=== PATIENT | female | born 1935 | race Caucasian/White ===

== ENCOUNTER 2019-05-31 09:53 | Outpatient (CLI) | payer MEDICARE, SELFPAY ==
[2019-05-31 11:06] LABS: Alanine Aminotransferase 10 U/L (4-35); Albumin Level 4.2 g/dL (3.5-5.1); Alkaline Phosphatase 63 U/L (38-126); Aspartate Amino Transferase 38 U/L (14-36); Bilirubin,Total 0.6 mg/dL (0.2-1.3); Blood Urea Nitrogen 12 mg/dL (7-17); Calcium 9.6 mg/dL (8.4-10.2); Carbon Dioxide 29 mmol/L (22-30); Chloride 100 mmol/L (98-107); Estimated Glomerular Filt Rate > 60; Glucose 110 mg/dL (65-105); Potassium 4.3 mmol/L (3.4-5.0); Sodium 137 mmol/L (137-145)
[2019-05-31 11:07] LABS: Cholesterol 142 mg/dL (0-200); HDL Direct 54 mg/dL; Triglycerides 141 mg/dL (<150)
[2019-05-31 11:18] LABS: LDL Cholesterol Direct 79 mg/dL
[2019-05-31 11:33] LABS: Free T4 Free Thyroxine 1.21 ng/mL (0.78-2.19)
== END 2019-05-31 09:54 | disposition home or self-care (01) ==
PROVIDERS: PCP Nurse Practitioner Adult Health; Visit Provider Nurse Practitioner Adult Health
DX: E78.5 Hyperlipidemia, unspecified (principal); E03.9 Hypothyroidism, unspecified; N19 Unspecified kidney failure
CPT/HCPCS: 36415; 80048; 80061; 80076; 84439; 84443

== ENCOUNTER 2020-08-28 13:45 | Outpatient (CLI) | payer MEDICARE, SELFPAY ==
[2020-08-28 14:16] LABS: Basophils Percent Auto 0.4 % (0.2-1.2); Eosinophils Absolute Auto 0.1 K/mm3 (0-0.3); Hematocrit 37.5 % (37.0-47.0); Hemoglobin 12.8 g/dL (12.0-15.0); Immature Granulocyte Absolute 0.02 K/mm3 (0.00-0.031); Immature Granulocyte Percent A 0.4 % (0-0.5); Lymphocytes Absolute Auto 1.97 K/mm3 (0.9-3.2); Lymphocytes Percent Auto 38.6 % (18.3-44.2); Mean Corpuscular HGB Conc 34.1 g/dl (32-36); Mean Corpuscular Hemoglobin 35.2 pg (26-34); Mean Platelet Volume 10.7 fl (7.4-10.4); Monocytes Absolute Auto 0.4 K/mm3 (0.1-0.6); Monocytes Percent Auto 7.6 % (2.6-8.5); Neutrophils Absolute Auto 2.7 K/mm3 (1.3-6.7); Platelet Count Result 220 k/mm3 (150-375); Red Blood Count 3.64 M/mm3 (4.2-5.4); Red Cell Distribution Width 12.3 % (11.5-14.5); White Blood Count 5.1 K/mm3 (4.5-10.0)
[2020-08-28 16:48] LABS: Alanine Aminotransferase 17 U/L (4-35); Albumin Level 4.1 g/dL (3.5-5.1); Alkaline Phosphatase 51 U/L (38-126); Anion Gap 5 mmol/L (8-16); Aspartate Amino Transferase 22 U/L (14-36); Bilirubin,Total 0.4 mg/dL (0.2-1.3); Blood Urea Nitrogen 16 mg/dL (7-17); Carbon Dioxide 27 mmol/L (22-30); Chloride 101 mmol/L (98-107); Estimated Glomerular Filt Rate > 60; Glucose 119 mg/dL (65-105); Potassium 4.4 mmol/L (3.4-5.0); Sodium 133 mmol/L (137-145)
[2020-08-28 17:16] LABS: Carcinoembryonic Antigen 1.6 ng/mL (0.0-3.0)
== END 2020-08-28 13:46 | disposition home or self-care (01) ==
PROVIDERS: PCP Nurse Practitioner Adult Health; Visit Provider Internal Medicine Hematology & Oncology
DX: C20 Malignant neoplasm of rectum (principal)
CPT/HCPCS: 36415; 80053; 82378; 85025

== ENCOUNTER 2021-03-03 11:23 | Outpatient (RCR) | payer MEDICARE, SELFPAY | END 2021-04-30 12:10 | disposition home or self-care (01) | LOC: ANHWOC 11:23 | PROVIDERS: PCP Nurse Practitioner Adult Health; Visit Provider Surgery | DX: Z93.3 Colostomy status (principal) | CPT/HCPCS: 99213; G0463 ==

== ENCOUNTER 2021-05-31 11:52 | Inpatient (IN) | payer MEDICARE, SELFPAY ==
[2021-05-31] VITALS (7 sets, daily range): BP systolic 109–148; BP diastolic 42–60; PULSE 58–78; RESP 15–20; TEMP 36.3–36.9; O2SAT 96–99; BMI 26.6
--- NOTE | ~2021-05-31 | CT_ITS ---
EXAMINATION: CTA chest PE protocol EXAM DATE: 05/31/2021 14:12 INDICATION: Pulmonary embolism. TECHNIQUE: Spiral CTA of the chest (pulmonary arteries) was performed with 100 cc Omnipaque 350 intr avenous contrast injection. Images were acquired during the pulmonary arterial phase. Coronal maxi mum intensity projection 3D-reconstructions were created by the technologist on dedicated workstation . Axial, coronal and sagittal reformatted images were reviewed. The dose-length product (DLP) for t his examination was 407.93 mGy-cm. The exposure was tailored according to patient size (auto mA exp osure control), and iterative reconstruction (ASIR) was used as additional dose reduction technique. There is no prior study for comparison. FINDINGS: Pulmonary arteries are well opacified and without intraluminal filling defects. No thora cic aortic dissection. The lungs are clear. There is an aberrant right subclavian artery, a normal c ongenital variant. There are no pleural or pericardial effusions. Tracheobronchial tree is patent. There is no mediastinal, hilar or axillary lymphadenopathy. There is no pneumothorax. Heart nor mal in size. There is mild coronary arterial calcification, arterial sclerosis. There are cholecys tectomy clips. There is thoracic spondylosis without osteoblastic or osteolytic lesions identified. IMPRESSION: No pulmonary emboli or acute cardiopulmonary findings. Reviewed, dictated and finalized at location A. L INSPECTOR
--- NOTE | ~2021-05-31 | XR_ITS ---
EXAMINATION: XR chest 1V portable EXAM DATE: 05/31/2021 13:37 INDICATION: Mid chest States Been Going On Forever, Worse Today. TECHNIQUE: Portable AP frontal chest x-ray was obtained. Comparison is made to prior examination from 08/31/2017. FINDINGS: The lungs are clear. There are no pleural effusions. The cardiomediastinal silhouette is within normal limits. There is no pneumothorax suspected. There is aortic arteriosclerosis. There a re bony degenerative changes. There are cholecystectomy clips. IMPRESSION: No acute cardiopulmonary findings. Reviewed, dictated and finalized at location A. FILTER TANK TENDER HELPER
--- NOTE | 2021-05-31 12:22 | ECG_ITS ---
Measurements Intervals [place] Rate: 68 P: 15 NM: 185 QRS: 30 QRSD: 84 T: 52 QT: 402 QTc: 428 Interpretive Statements SINUS RHYTHM SUBTLE ST ELEVATION IN INFERIOR LEADS- CONSIDER ACUTE INFARCT BASELINE ARTIFACT- I, II, III, AVR, AVF, V1-V6 ABNORMAL ECG Electronically Signed On 05-31-2021 14:15:15 OUTSIDE BARREL LATHE OPERATOR by Fernando Phillips D.O.
--- NOTE | 2021-05-31 12:35 | ED.GENADULT ---
HPI - General Adult General Chief complaint: Chest Pain Stated complaint: chest pain Time Seen by Provider: 05/31/21 12:21 Source: RN notes reviewed History of Present Illness HPI narrative: Patient presents emergency department from home for chest pain. Patient has pain began proximally 10:00 this morning pain is located midsternal chest and goes into the right shoulder described as a pressure in nature patient states he does have a cardiac history with stents placed a long time ago but cannot give any further history she notes mild shortness of breath with the symptoms she states she did take a nitro at home with minimal relief this morning she denies any fevers or chills abdominal pain nausea vomiting or any other symptoms Related Data Home Medications Medication Instructions Recorded Confirmed carbidopa 25 mg-levodopa 100 mg 1 tablet PO TID 02/04/21 02/10/21 tablet citalopram 40 mg tablet 20 mg PO DAILY 02/04/21 02/10/21 levothyroxine 50 mcg tablet 50 mcg PO DAILY 02/04/21 02/10/21 pantoprazole 40 mg tablet,delayed 40 mg PO QAM 02/04/21 02/10/21 release simvastatin 10 mg tablet 10 mg PO DAILY 02/04/21 02/10/21 Allergies Allergy/AdvReac Type Severity Reaction Status Date / Time lanolin Allergy Severe ITCHING Verified 02/10/21 13:32 morphine Allergy Mild Itching Verified 02/10/21 13:32 meperidine Allergy Unknown unknown Verified 02/10/21 13:32 sulfur dioxide Allergy Unknown Unknown Verified 02/10/21 13:32 tramadol Allergy Unknown Unknown Verified 02/10/21 13:32 Sulfa (Sulfonamide AdvReac Mild Nausea and Verified 05/31/21 15:04 Antibiotics) Vomiting Review of Systems Review of Systems: Gen.: Denies fevers or chills ENT: Denies congestion Respiratory: Ports shortness of breath or chest CV: See HPI GI: Denies abdominal pain nausea, emesis or diarrhea Musculoskeletal: Denies back pain or muscle pain Neuro: Denies numbness, tingling, weakness or focal weakness Skin: Denies rash Except as documented, all other systems reviewed and negative PMFSH Past Medical History Medical History Colon cancer Colostomy in place HLD (hyperlipidemia) Hypothyroidism Parkinson disease Surgical History Surgical History (Updated 05/31/21 @ 16:13 by Prema Goldstein PA-C) History of creation of ostomy Hx of colectomy Family History Family History Other Cerebrovascular accident Diabetes mellitus Family history of allergic disorder Family history of kidney disease Family history of malignant neoplasm Hypertension Social History Social History Smoking status: Former smoker Alcohol intake: never Substance use: never Living arrangements: with friend(s) Occupation/Education: retired Exam Narrative: APPEARANCE: No acute distress, nontoxic, resting in bed EYES: EOMI HEENT: Normocephalic, atraumatic, OMM RESPIRATORY: No respiratory distress Clear to auscultation bilaterally with no rhonchi wheezing or rales. CARDIOVASCULAR: Regular rate and rhythm without murmurs rubs or gallops. ABDOMINAL: Soft, nontender, nondistended, no rebound or guarding MUSCULOSKELETAl: Moves all extremities. No clubbing, cyanosis or edema. NEURO: Awake and alert. Following commands, speech normal, no focal deficits SKIN:: Warm, dry. No rashes lesions or abrasions PSYCHIATRIC: Normal affect/mood, Course Course Emergency Course: Called and discussed with GREG Bess for Dr. Marlow presentation work-up agrees with consult this time agrees with plan for Lovenox and Nitropaste Discussed with MADELEINE Alejo presentation work-up agrees with admission Vital Signs Vital signs: Vital Signs Temperature 97.6 F 05/31/21 12:11 Pulse Rate 69 05/31/21 12:11 Respiratory Rate 16 05/31/21 12:11 Blood Pressure 111/42 L 05/31/21 12:11 Pulse Oximetry 99
[2021-05-31 13:11] LABS: Hematocrit 33.3 % (37.0-47.0); Hemoglobin 11.4 g/dL (12.0-15.0); Mean Corpuscular HGB Conc 34.2 g/dl (32-36); Mean Corpuscular Hemoglobin 38.6 pg (26-34); Mean Corpuscular Volume 112.9 fl (80-100); Mean Platelet Volume 11.1 fl (7.4-10.4); Platelet Count Result 212 k/mm3 (150-375); Red Blood Count 2.95 M/mm3 (4.2-5.4); Red Cell Distribution Width 13.2 % (11.5-14.5)
[2021-05-31 13:37] LABS: Alanine Aminotransferase 6 U/L (4-35); Alkaline Phosphatase 59 U/L (38-126); Anion Gap 4 mmol/L (8-16); Aspartate Amino Transferase 25 U/L (14-36); Bilirubin,Total 0.8 mg/dL (0.2-1.3); Blood Urea Nitrogen 11 mg/dL (7-17); Calcium 9.5 mg/dL (8.4-10.2); Carbon Dioxide 26 mmol/L (22-30); Chloride 101 mmol/L (98-107); Estimated CRCL calculation 49 ml/min; Estimated Glomerular Filt Rate > 60; Glucose 106 mg/dL (65-110); Lipase 85 U/L (23-300); Potassium 4.5 mmol/L (3.4-5.0); Sodium 131 mmol/L (137-145)
[2021-05-31 13:45] LABS: Troponin I 0.053 ng/mL (0.000-0.034)
--- NOTE | 2021-05-31 13:46 | ECG_ITS ---
Measurements Intervals [place] Rate: 62 P: 9 NH: 178 QRS: -1 QRSD: 85 T: 53 QT: 428 QTc: 435 Interpretive Statements SINUS RHYTHM MINIMAL Q WAVES- INFERIOR LEADS BASELINE ARTIFACT- I, II, III, AVR, AVL, AVF, V1, V3-V6 BORDERLINE ECG Electronically Signed On 05-31-2021 14:13:30 MOUNT LOADER by Fernando Phillips D.O.
--- NOTE | 2021-05-31 13:50 | ECG_ITS ---
Measurements Intervals [place] Rate: 66 P: 16 MN: 193 QRS: 36 QRSD: 88 T: 50 QT: 404 QTc: 426 Interpretive Statements SINUS RHYTHM SUBTLE ST ELEVATION IN INFERIOR LEADS- CONSIDER ACUTE INFARCT OR EARLY REPOLARIZATION ABNORMALITY ABNORMAL ECG Electronically Signed On 05-31-2021 17:13:19 FARM CONTRACTOR by Fernando Phillips D.O.
[2021-05-31 14:02] LABS: INR 1.1; Prothrombin Time 13.9 Seconds (11.1-14.7)
[2021-05-31 14:03] LABS: Partial Thromboplastin Time 29.7 SECONDS (22.3-36.8)
[2021-05-31 14:25] LABS: Band Neutrophils Percent 12 % (0-6); Lymphocytes Absolute Manual 0.28 K/mm3 (1.1-4.5); Metamyelocytes Percent 3 %; Monocytes Absolute Manual 0.04 K/mm3 (0.1-0.90); Monocytes Percent Manual 1 % (3-9); Neutrophils Absolute Manual 3.56 K/mm3 (1.7-7.2); Neutrophils Percent Manual 77 % (46-73); Platelet Estimate Adequate (Adequate); Total Cells Counted 100
[2021-05-31] MEDS: NITROGLYCERIN OINTMENT 1 INCH DOSE 0.5 INCH TRANSDERM (14:47)
[2021-05-31] MEDS: ASPIRIN 81 MG CHEWABLE TABLET 324 MG PO (15:03)
[2021-05-31] MEDS: ENOXAPARIN 80 MG/0.8 ML SYRINGE 72 MG SUB-Q (15:21)
--- NOTE | 2021-05-31 15:28 | PM.IMHP ---
H&P: HPI History of Present Illness Date/Time: 05/31/21 15:28 Chief Complaint: Chest pain Narrative: This is an 85 year old woman with history of hypothyroidism, HLD, Parkinson's Disease, Colon Cancer s/p colectomy with ostomy bag in place, status post chemo on radiation currently in remission, who presented to the ER with complaints of chest pain which began while she was walking into the bathroom to get ready this morning. The patient states she never even was able to brush her hair and get ready secondary to her pain. Patient tells me she is having mid substernal pressure chest pain with radiation to her left mid chest and to her left arm. She reports some associated symptoms of shortness of breath at times. She states it is currently a 7/10. She does have some increased pain with taking a deep breath. She did have some relief this morning when her friend gave her a nitro, but it did not completely resolve and soon the pain came back. The patient friend and POWolfgang Zacarias, lives with her and states she has had this pain off an on for years. The patient has never had it worked up before and usually it is not very severe and she will take a baby aspirin with improvement. Today she was concerned due to her increased pain and requesting at nitro pill. The patient decided to come into the emergency room for further evaluation workup because the pain was not resolving and was continuous. The patient's vitals on arrival to the emergency room showed a blood pressure 111/42, heart rate 69 beats per minute, afebrile, normal oxygenation on air. Initial labs showed slight leukopenia at 4000, elevated bands at 12%, elevated neutrophils at 77%. Macrocytic anemia with a hemoglobin of 11, hematocrit 33%, MCV of 112. Hyponatremia at 131, normal renal function, normal LFTs. Normal lipase. Elevated troponin at 0.053. Chest x-ray showed no acute cardiopulmonary findings. CTA chest showed no PE or acute cardiopulmonary findings. Patient was admitted to the hospital under observation status for further workup on her chest pain. Cardiology has been consulted. Code Status-DNR POA- Sheryl Drake Review of Systems Review of Systems: All systems reviewed & are unremarkable except as noted in HPI and below PMFSH Past Medical History Medical History (Updated 05/31/21 @ 16:24 by Prema Goldstein PA-C) Colon cancer Colostomy in place HLD (hyperlipidemia) Hypothyroidism Parkinson disease Surgical History Surgical History (Updated 05/31/21 @ 16:13 by Prema Goldstein PA-C) History of creation of ostomy Hx of colectomy Family History Family History Other Cerebrovascular accident Diabetes mellitus Family history of allergic disorder Family history of kidney disease Family history of malignant neoplasm Hypertension Social History Social History (Updated 05/31/21 @ 16:18 by Prema Goldstein PA-C) Smoking status: Former smoker Alcohol intake: never Substance use: never Living arrangements: with friend(s) Occupation/Education: retired Meds Home Medications and Allergies Home Medications Medication Instructions Recorded Confirmed Type carbidopa 25 mg-levodopa 100 mg 1 tablet PO TID 02/04/21 02/10/21 History tablet citalopram 40 mg tablet 20 mg PO DAILY 02/04/21 02/10/21 History levothyroxine 50 mcg tablet 50 mcg PO DAILY 02/04/21 02/10/21 History pantoprazole 40 mg tablet,delayed 40 mg PO QAM 02/04/21 02/10/21 History release simvastatin 10 mg tablet 10 mg PO DAILY 02/04/21 02/10/21 History Allergies Allergy/AdvReac Type Severity Reaction Status Date / Time lanolin Allergy Severe ITCHING Verified 02/10/21 13:32 morphine Allergy Mild Itching Verified 02/10/21 13:32 meperidine Allergy Unknown unknown Verified 02/10/21 13:32 sulfur dioxide Allergy Unknown Unknown Verified 02/10/21 13:32 tramadol Allergy Unknown Unknown Verified
[2021-05-31] MEDS: PANTOPRAZOLE SODIUM IV 40 MG VIAL IV PUSH ×2 (16:34→22:32)
--- NOTE | 2021-05-31 17:13 | ADMGEN ---
This patient, Bonnie Beltran, was admitted to IMU Room 232-01. Patient/family oriented to hospital policies and general routines including ID bracelet, bed and alarms, visiting hours, pain management, procedures, bathroom and other care routines, personal items, smoking policy, room service/diet, and visiting hours. Information on how to activate the Rapid Response Team has been discussed. Patient/Family are encouraged to report perceived risks to care and to ask questions if they do not understand what they are told or what they should do.
--- NOTE | 2021-05-31 18:09 | PM.CNCAR ---
Assessment and Plan Additional Plan This is an 85-year-old woman who apparently has a history of coronary disease with the angioplasty of the right coronary artery back in the . She also has an episode of atrial fibrillation occurred about 5 years ago when she was having colectomy performed. According to the notes she does not tolerate either anti coagulation or aspirin without bleeding. In any event she has a long history of several years of intermittent chest pain that on the surface sounds atypical of and not suggestive of myocardial ischemia. This appears to be 1 of those episodes. Her ECG does look benign. Her troponin level is slightly out normal range. We will trend the troponins and follow-up again on her tomorrow. Given her advanced age and especially given her DNR wishes I do not anticipate launching an ischemia workup while she is in the hospital. Chad Marlow MD LOCATED [facility]IN [facility] History of Present Illness History of Present Illness Consult date/time: 05/31/21 18:09 Consult reason: chest pain Reason For Visit: NSTEMI Narrative: This is a 85-year-old woman who I have not seen previously I am coming in from the emergency room today because of chest pain that was she was experiencing at home and created concern regarding her cardiac status. The patient currently is not experiencing any chest pain she has a history of chest pain intermittently in unpredictable fashion for about 2 or 3 years according to the patient and her caregiver/friend was with her in the hospital. The patient has episodes of relatively sharp central chest pain the seem to occur spot sporadically. She very a elderly lady that does not perform any physical exercise but with normal daily activity she does not find that activity triggers this. It is not associated with a sense of shortness of breath nausea vomiting or diaphoresis. The pain does not radiate to any other location. When I asked the patient if she has a history of cardiac problems prior to this she indicated that she does not. On further conversation however she indicates that she follows with my partner, Dr. Noel. Probing this more apparently she has a history of coronary artery disease with a PCI done a long time ago. The office chart which then item looked at indicates she has a history of angioplasty of the right coronary artery back in 1996. Presumably the vessel was not stented. She has a history of an episode of atrial fibrillation which occurred following colectomy for here at [place] for treating a rectal carcinoma in 2017. According to the office notes she does not tolerate either aspirin or anticoagulation without rectal bleeding. 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 Patient ECGs in the emergency room look benign. First troponin level that was done in the emergency room is fairly out of normal range at 0.05. Review of Systems Constitutional: Constitutional: Reports no additional constitutional complaints Eyes: Eyes: Reports no additional eye complaints ENT: Reports system reviewed and no additional complaints, except as documented Cardiovascular: Cardiovascular: Reports as per HPI Respiratory: Respiratory: Reports no additional respiratory complaints Gastrointestinal: Gastrointestinal: Reports diarrhea Musculoskeletal: Musculoskeletal: Reports myalgias Integumentary/Breasts: Skin/Breast: Reports system reviewed and no additional complaints, except as docu Neurologic: Reports system reviewed and no additional complaints, except as documented Endocrine: Endocrine: Reports no additional endocrine complaints Hematologic/Lymphatic: Hematologic/Lymphatic: Reports no additional hematologic/lymphatic complaints Allergic/Immunologic: Allergic/Immunologic: Reports no additional allergic/immunologic complaints PMFSH Past Medical History Medical History Colon cancer Colostomy in place HLD (hyperlip
[2021-05-31 18:19] LABS: Lactic Acid Reflex 1.8 mmol/L (0.7-2.1)
[2021-05-31 18:22] LABS: CRP < 0.5 mg/dL (<1.0); Lactate Dehydrogenase 387 U/L (313-618)
[2021-05-31 18:23] LABS: Transferrin 249 mg/dL (206-381)
[2021-05-31 18:46] LABS: Troponin I 0.377 ng/mL (0.000-0.034)
[2021-05-31 19:01] LABS: Iron 123 ug/dL (37-170)
[2021-05-31 19:11] LABS: Percent Iron Saturation 42 % (20-50)
[2021-05-31 19:23] LABS: Folic Acid 17.4 ng/mL (2.76->20)
[2021-05-31] MEDS: SIMVASTATIN 10 MG TABLET PO (21:10)
[2021-05-31 21:30] LABS: Troponin I 0.352 ng/mL (0.000-0.034)
[2021-05-31] MEDS: CARBIDOPA/LEVODOPA 25/100 MG TABLET 1 TABLET PO (22:32)
[2021-05-31] MEDS: NITROGLYCERIN OINTMENT 1 INCH DOSE TRANSDERM (22:32)
[2021-06-01] VITALS (15 sets, daily range): BP systolic 109–145; BP diastolic 37–73; PULSE 53–71; RESP 16–20; TEMP 35.8–36.8; O2SAT 94–100
--- NOTE | 2021-06-01 | ECHO_ITS ---
Patient Info Name: Bonnie Beltran Age: 86 years : 1935 Gender: Female Ht: 63 in Wt: 151 lbs BSA: 1.76 m2 HR: 63 bpm BP: 129 / 37 mmHg Heart Rhythm: Sinus Rhythm Technical Quality: Fair Exam Date: 06/01/2021 9:48 AM Exam Location: [facility] Card Pulmonary Patient Status: Inpatient Admit Date: 05/31/2021 Staff Ordering Physician: Prema Goldstein PA-C Survey Rodman: Anne López RDCS Attending Provider: Prema Goldstein PA-C Referring Physician: Triston WORLEY; Exam Type: CA echo dop color flow w con Study Info Indications - chest pain Complete two-dimensional, color flow and Doppler transthoracic echocardiogram is performed with contrast to opacify the left ventricle and to improve the deliniation of the left ventricle endocardial borders. Contrast/Agitated Saline Contrast/Ag. Saline: Definity Amount: 2.00 ml Administered By: Anne López RDCS Summary 1. Technically difficult study, echo contrast was used. Normal LV size and wall thickness; hyperdynamic LV systolic function, ejection fraction more than 70%. Diastolic dysfunction present with elevated left atrial pressures. Mildly thickened mitral valve leaflets, no significant MR. Mild aortic valve sclerosis without stenosis. Unable to assess RVSP due to inadequate TR jet. Small pericardial effusion with echogenic material, predominantly along RV wall. No echo evidence of tamponade. Left Ventricle Left ventricular chamber dimension is normal. Left ventricular systolic function is hyperdynamic, estimated at >70%. The left ventricular diastolic function is normal. Right Ventricle Right ventricular chamber dimension is normal. Right ventricular systolic function is normal. Left Atria Left atrial chamber dimension is normal. Right Atria Right atrial chamber dimension is normal. Aortic Valve There is mild aortic valve sclerosis. There is no aortic valve stenosis. Mitral Valve The mitral valve has thickened leaflets. Tricuspid Valve The tricuspid valve leaflets are not well visualized. Pericardium/Pleural The pericardium appears epicardial fat pad. There is small pericardial effusion. Aorta The aortic root size at the sinus of Valsalva is normal. Left Ventricular Outflow Tract Name Value Normal LVOT 2D LVOT Diameter 1.93 cm LVOT Doppler LVOT Peak Gradient 5 mmHg LVOT Mean Gradient 3 mmHg LVOT VTI 24.47 cm LVOT VTI/AV VTI Ratio 1.00 LVOT Stroke Volume 71.23 ml LVOT CO 4.06 l/min LVOT CI 2.30 L/min/m2 Pulmonic Valve Name Value Normal RVOT Doppler RVOT Peak Gradient 2 mmHg PV Doppler ----
[2021-06-01 06:02] LABS: Basophils Percent Auto 0.7 % (0.2-1.2); Eosinophils Absolute Auto 0.1 K/mm3 (0-0.3); Eosinophils Percent Auto 2.1 % (0-4.4); Hematocrit 29.9 % (37.0-47.0); Hemoglobin 10.3 g/dL (12.0-15.0); Lymphocytes Absolute Auto 1.25 K/mm3 (0.9-3.2); Lymphocytes Percent Auto 44.3 % (18.3-44.2); Mean Corpuscular HGB Conc 34.4 g/dl (32-36); Mean Corpuscular Hemoglobin 38.1 pg (26-34); Mean Corpuscular Volume 110.7 fl (80-100); Mean Platelet Volume 11.1 fl (7.4-10.4); Monocytes Absolute Auto 0.3 K/mm3 (0.1-0.6); Monocytes Percent Auto 9.9 % (2.6-8.5); Neutrophils Absolute Auto 1.2 K/mm3 (1.3-6.7); Platelet Count Result 180 k/mm3 (150-375); White Blood Count 2.8 K/mm3 (4.5-10.0)
[2021-06-01 06:13] LABS: Anion Gap 4 mmol/L (8-16); Blood Urea Nitrogen 14 mg/dL (7-17); Calcium 9.2 mg/dL (8.4-10.2); Carbon Dioxide 27 mmol/L (22-30); Chloride 100 mmol/L (98-107); Estimated CRCL calculation 42 ml/min; Estimated Glomerular Filt Rate > 60; Glucose 89 mg/dL (65-110); Potassium 3.6 mmol/L (3.4-5.0); Sodium 131 mmol/L (137-145)
[2021-06-01] MEDS: NITROGLYCERIN OINTMENT 1 INCH DOSE TRANSDERM ×3 (06:22→17:49)
[2021-06-01] MEDS: LEVOTHYROXINE SODIUM 50 MCG TABLET PO (06:23)
[2021-06-01] MEDS: CARBIDOPA/LEVODOPA 25/100 MG TABLET 1 TABLET PO ×3 (06:23→20:07)
--- NOTE | 2021-06-01 10:01 | ECG_ITS ---
Measurements Intervals [place] Rate: 59 P: 13 VT: 170 QRS: 45 QRSD: 81 T: 45 QT: 445 QTc: 441 Interpretive Statements SINUS BRADYCARDIA SUBTLE ST ELEVATION IN INFERIOR LEADS- CONSIDER ACUTE INFARCT OR EARLY REPOLARIZATIOIN ABNORMALITY MINIMAL Q WAVES- INFERIOR LEADS BASELINE ARTIFACT- I, II, III, AVR, AVL, AVF ABNORMAL ECG Electronically Signed On 06-01-2021 11:01:33 TRACTOR TRAILER TECHNICIAN by Fernando Phillips D.O.
--- NOTE | 2021-06-01 10:30 | PM.PNCARD ---
Progress Note: A&P Assessment and Plan (1) Acute coronary syndrome: Code(s): I24.9 - Acute ischemic heart disease, unspecified Status: Acute Assessment and Plan: 86-year-old female with history of CAD with remote history of RCA angioplasty in 1996-intervention report not available; PAF not on anticoagulation due to history of recurrent rectal bleeding based on outpatient notes; Parkinson's disease. Patient admitted to the hospital with chest pain with mixed features. CT chest negative for PE. Personally reviewed serial EKGs which showed sinus rhythm with subtle ST segment abnormality in the inferior leads and subtle ST depression in the leads 1 and aVL. Repeat EKG this morning shows sinus bradycardia with subtle ST segment abnormality in the inferior leads. Peak troponin 0.37 which is trending downwards. Bedside echocardiogram on preliminary assessment shows preserved LV systolic function. I spoke with the patient and her family member who was patient's bedside in detail. I reviewed outpatient note from Dr Noel. She was evaluated yesterday by Dr. Marlow, and given the fact that patient is DNR and has had history of intolerance to antiplatelets and anticoagulation in the form of bleeding, she was anticipated to be managed medically. This morning, however, patient states that she does not want to be in chest pain. She is hemodynamically stable at present and repeat EKG this morning does not show any worsening compared to the previous EKGs. Bedside echo on preliminary assessment shows preserved ejection fraction. After discussion with the patient, patient is okay to be managed medically for now but would like to proceed with invasive ischemic workup if her chest pain persists or gets worse in next 24 hours. Continue aspirin, beta-laura, statin. Continue to monitor if patient is able to tolerate aspirin. Continue to monitor on telemetry. Keep NPO from midnight in case patient goes for invasive workup tomorrow. Patient understands that her code status will need to be changed to full code during cardiac catheterization if she opts invasive workup. She verbalized understanding. Subjective Date/time seen: 06/01/21 10:30 Date of Service 06/01/2021: Patient reports substernal and left-sided chest discomfort, no relieving or aggravating factors at present. She denies any shortness of breath at rest. At the time of evaluation, bedside echocardiogram was being performed which on preliminary assessment showed preserved LV systolic function. On telemetry, patient has been in sinus rhythm. Personally reviewed previous EKG which showed sinus rhythm with subtle ST segment abnormality in the inferior leads and subtle ST depression in the leads 1 and aVL. Repeat EKG this morning shows sinus bradycardia with subtle ST segment abnormality in the inferior leads. Exam Narrative: PHYSICAL EXAMINATION: GENERAL: Alert, oriented MENTAL STATUS: Anxious EYES: Extraocular movements intact, no pallor EARS: External ears appear normal, hearing grossly normal NOSE: Normal and patent, no discharge MOUTH: Mucous membranes moist, tongue normal NECK: Supple, no JVD CHEST: Decreased effort, decreased breath sounds HEART: Normal rate, regular rhythm, normal S1 and S2 ABDOMEN: Soft, nontender; colostomy bag NEUROLOGICAL: Alert, normal speech MUSCULOSKELETAL: No major deformity, no amputation EXTREMITIES: No pedal edema, no clubbing, no cyanosis SKIN: no rash on the exposed area, no cyanosis PSYCHIATRIC: Anxious Objective Data Vital Signs Vital Signs: Vital Signs - 24 hr 05/31/21 12:11 05/31/21 12:30 05/31/21 16:47 Temperature 36.4 C 36.9 C Pulse Rate 69 67 62 Respiratory Rate 16 15 15 Blood Pressure 111/42 L 109/49 L 114/60 Pulse Oximetry 99 97 96 05/31/21 17:10 05/31/21 20:00 05/31/21 22:00 Temperature 36.4 C 36.3 C L Pulse Rate 58 L 62 64 Respiratory Rate 16 20 Blood Pressure 110/52 L 138/58 L Pulse Ox
--- NOTE | 2021-06-01 10:41 | PCPTNOTE ---
Attempted PT eval, but patient having a procedure done and MD in room. Will continue to follow as patient available.
[2021-06-01] MEDS: PERFLUTREN LIPID MICROSPHERES 1.5 ML VIAL DILUTED TO 10 ML TOTAL VOLUME IV PUSH (10:46)
--- NOTE | 2021-06-01 10:46 | IVDEFINITY ---
Prior to administration of IV Definity the patient was educated on the risks and benefits of the imaging enhancing agent including potential adverse side effects. The patient verbalized understanding. Allergies were verified. No exclusion criteria were identified and at least one of the following inclusion criteria were met: 1) physician request, 2) patient technically difficult to image (per the [place] [employer] guidelines of two or more segments not discernable within the apical view), or 3) questionable left ventricular function. ?
[2021-06-01] MEDS: ASPIRIN 325 MG TABLET PO (10:56)
[2021-06-01] MEDS: atenoloL 25 MG TABLET PO (10:57)
[2021-06-01] MEDS: CITALOPRAM HYDROBROMIDE 20 MG TABLET PO (10:57)
[2021-06-01] MEDS: PANTOPRAZOLE SODIUM IV 40 MG VIAL IV PUSH (10:58)
--- NOTE | 2021-06-01 11:39 | PM.IMPN ---
Progress Note: A&P Assessment and Plan (1) Chest pain: Code(s): R07.9 - Chest pain, unspecified Status: Acute Assessment and Plan: Patient has had intermittent chest pain for years and now it is constant even after nitro and full-dose aspirin. Patient cannot be on 81 mg aspirin daily because there is area of her ostomy that bleeds and she only takes 81 mg aspirin as needed for chest discomfort. Chest pain is 2/10 at this time. The nurse called me shortly after me seeing her stain that her pain increased to a 9/10 and an EKG was completed at that time. EKG shows sinus bradycardia, with subtle ST T-wave changes to the inferior leads. Pending echocardiogram results Cardiology evaluated the patient today after her increased chest pain. The director social service briefly reviewed the echo that was being completed at bedside with the patient and showed she had a normal EF, reviewed the EKG from admission to when her pain increased. He discussed with the patient and family about further ischemic workup. The patient states this chest pain is very uncomfortable and they would like to perform further cardiac workup if her pain does not resolve. Plan is to keep the patient overnight, NPO after midnight it depends on how he is feeling tomorrow if she will be placed on the list to have a cath Monitor telemetry Continue monitoring. (2) HLD (hyperlipidemia): Code(s): E78.5 - Hyperlipidemia, unspecified Status: Acute Assessment and Plan: Continue statin. (3) Parkinson disease: Code(s): G20 - Parkinson's disease Status: Acute Assessment and Plan: Continue her carbidopa levodopa (4) Hypothyroidism: Code(s): E03.9 - Hypothyroidism, unspecified Status: Acute Assessment and Plan: TSH normal. Continue levothyroxine. (5) Leukopenia: Code(s): D72.819 - Decreased white blood cell count, unspecified Status: Acute Assessment and Plan: Slight leukopenia on labs white count of 2800. Normal CRP, Lactic, LDH, Ferritin. Patient had otherwise been feeling well without any cough or cold symptoms, patient denies any urinary complaints. Family states she does not have a history of urinary tract infections. Patient's chest pain could be a component of pleurisy if she has a viral illness Will also check a urinalysis with reflux culture to rule out UTI Normal CRP, LDH, Ferritin CT of chest was negative for any acute pulmonary abnormalities Will need outpatient CBC in 1 week for further evaluation and work up by PCP Continue monitoring. Will recheck labs in morning. (6) Macrocytic anemia: Code(s): D53.9 - Nutritional anemia, unspecified Status: Acute Assessment and Plan: Patient has macrocytic anemia. Family states she has not seen a doctor with COVID. Patient also has some dark stool and is no longer taking pantoprazole Normal iron panel, vitamin B12 and folic acid levels Continue monitoring H&H. No acute signs of bleeding at this time. Time Spent With Patient Time with patient: 25 - 35 minutes Subjective Date/time seen: 06/01/21 11:39 Interval history: Date of service 06/01/2021: Patient is feeling little bit better today. She states she is still having some substernal to left-sided chest discomfort rated 2 or 3/10. It does become worse with taking a deep breath so she says she has been breathing more shallow. Denies any fevers, chills, diaphoresis, nausea, shortness of breath, cough, vomiting, abdominal pain, leg swelling, calf pain, or any other symptoms at this time. Review of Systems Review of Systems: All systems reviewed & are unremarkable except as noted in
[2021-06-01] MEDS: SIMVASTATIN 10 MG TABLET PO (20:07)
[2021-06-02] VITALS (25 sets, daily range): BP systolic 133–180; BP diastolic 39–84; PULSE 55–102; RESP 14–21; TEMP 35.9–36.4; O2SAT 98–100
[2021-06-02] MEDS: NITROGLYCERIN OINTMENT 1 INCH DOSE TRANSDERM ×4 (01:00→20:14)
[2021-06-02 05:12] LABS: Hematocrit 32.8 % (37.0-47.0); Hemoglobin 11.3 g/dL (12.0-15.0); Mean Corpuscular HGB Conc 34.5 g/dl (32-36); Mean Corpuscular Volume 110.4 fl (80-100); Platelet Count Result 214 k/mm3 (150-375); Red Blood Count 2.97 M/mm3 (4.2-5.4); Red Cell Distribution Width 12.9 % (11.5-14.5); White Blood Count 4.1 K/mm3 (4.5-10.0)
[2021-06-02 05:30] LABS: Anion Gap 4 mmol/L (8-16); Blood Urea Nitrogen 18 mg/dL (7-17); Calcium 9.2 mg/dL (8.4-10.2); Carbon Dioxide 29 mmol/L (22-30); Chloride 101 mmol/L (98-107); Estimated CRCL calculation 42 ml/min; Estimated Glomerular Filt Rate > 60; Glucose 99 mg/dL (65-110); Magnesium 2.3 mg/dL (1.6-2.3); Potassium 3.5 mmol/L (3.4-5.0); Sodium 134 mmol/L (137-145)
[2021-06-02] MEDS: CARBIDOPA/LEVODOPA 25/100 MG TABLET 1 TABLET PO ×3 (05:38→20:13)
[2021-06-02] MEDS: LEVOTHYROXINE SODIUM 50 MCG TABLET PO (05:38)
--- NOTE | 2021-06-02 08:41 | PM.PNCARD ---
Progress Note: A&P Additional Plan 86-year-old lady with coronary artery disease remote history of PCI details of which are not available to us here at this hospital. Because of her chest pain and modest troponin elevation she has now reconsidered her decision and is going to be brought to the cardiac catheterization lab. That will be performed as soon as possible and further recommendations of course will be forthcoming after that exam has been performed. Patient understands that if she does require PCI she must agree to take anti coagulation anti-platelet therapy regardless of her concerns regarding stomal bleeding. She also has to be a full code patient to be brought to the cardiac catheterization lab Chad Marlow MD [facility] Subjective Date/time seen: 06/02/21 08:41 Interval history: Follow-up visit in this 86-year-old lady with: Coronary artery disease remote history of PCI elsewhere. Patient admitted to the hospital with chest pain that is largely atypical of angina but does have modest troponin elevation. Still having mild chest pain yesterday and today and apparently has reconsidered the decision about declining an angiogram. Long discussion with the patient and her family in the room this morning and they wish to proceed with angiography. The patient will therefore be taken to the lab this morning. Of course she will now be a full code patient and she must agree to take anti-platelet and anticoagulation medicine should a intervention be performed. Exam Narrative: PHYSICAL EXAMINATION: GENERAL: Alert, oriented MENTAL STATUS: Anxious EYES: Extraocular movements intact, no pallor EARS: External ears appear normal, hearing grossly normal NOSE: Normal and patent, no discharge MOUTH: Mucous membranes moist, tongue normal NECK: Supple, no JVD CHEST: Decreased effort, decreased breath sounds HEART: Normal rate, regular rhythm, normal S1 and S2 ABDOMEN: Soft, nontender; colostomy bag NEUROLOGICAL: Alert, normal speech MUSCULOSKELETAL: No major deformity, no amputation EXTREMITIES: No pedal edema, no clubbing, no cyanosis SKIN: no rash on the exposed area, no cyanosis PSYCHIATRIC: Anxious Const: General: comfortable and no acute distress Other: Pleasant elderly lady room 232 visiting with her friend, no distress HENMT: Mouth: Yes moist mucous membranes Eyes: Sclera: sclerae normal Pupils: Equal, round and reactive pupils present Neck: Neck: supple and no JVD Other: Carotid impulses are intact no bruits are audible Resp: Effort & Inspection: normal respiratory effort Other: Few rhonchi are noted no rales no wheezing Cardio: Rate: regular rate Rhythm: regular rhythm GI: Auscultation: normal bowel sounds Other: Colostomy noted in the left lower quadrant Skin: General skin exam: normal color Neuro: Cranial nerves: Yes Equal, round and reactive pupils present Cognition (Neuro): normal cognition Extrem: Other: No edema, distal pulses are diminished bilaterally Objective Data Vital Signs Vital Signs: Vital Signs - 24 hr 06/01/21 10:00 06/01/21 12:00 06/01/21 14:00 Temperature 36.7 C Pulse Rate 58 L 68 69 Respiratory Rate 18 Blood Pressure 120/37 L Pulse Oximetry 100 06/01/21 16:00 06/01/21 18:00 06/01/21 19:58 Temperature 36.7 C 35.8 C L Pulse Rate 59 L 63 58 L Respiratory Rate 18 16 Blood Pressure 124/46 L 109/73 Pulse Oximetry 94 100 06/01/21 20:00 06/01/21 22:00 06/01/21 23:20 Temperature 36.2 C L Pulse Rate 61 71 63 Respiratory Rate 18 Blood Pressure 144/54 H Pulse Oximetry 99 06/02/21 00:00 06/02/21 02:00 06/02/21 04:00 Temperature 36.3 C L Pulse Rate 61 59 L 102 H Respiratory Rate 18 Blood Pressure 133/48 L Pulse Oximetry 99 06/02/21 06:00 Temperature Pulse Rate 60 Respiratory Rate Blood Pressure Pulse Oximetry Intake/Output Intake/Output: Intake & Output 05/30/21 05/31/21 06/01/21 06/02/21 23:59 23:59 2
[2021-06-02] MEDS: CITALOPRAM HYDROBROMIDE 20 MG TABLET PO (09:02)
[2021-06-02] MEDS: atenoloL 25 MG TABLET PO (09:02)
[2021-06-02] MEDS: ASPIRIN 325 MG TABLET PO (09:02)
--- NOTE | 2021-06-02 09:10 | WPDMODSED ---
Moderate Sedation Note-Pt Data Patient Data Diagnosis: Coronary artery disease with chest pain elevation of troponin Present Complaint: ongoing mild chest pain Procedure to be performed/Plan: left heart catheterization Allergies Allergy/AdvReac Type Severity Reaction Status Date / Time lanolin Allergy Severe ITCHING Verified 02/10/21 13:32 morphine Allergy Mild Itching Verified 02/10/21 13:32 meperidine Allergy Unknown unknown Verified 02/10/21 13:32 sulfur dioxide Allergy Unknown Unknown Verified 02/10/21 13:32 tramadol Allergy Unknown Unknown Verified 02/10/21 13:32 Sulfa (Sulfonamide AdvReac Mild Nausea and Verified 05/31/21 15:04 Antibiotics) Vomiting Home Medications Medication Instructions Recorded Confirmed Type carbidopa 25 mg-levodopa 100 mg 1 tablet PO TID 02/04/21 05/31/21 History tablet citalopram 40 mg tablet 20 mg PO DAILY 02/04/21 05/31/21 History levothyroxine 50 mcg tablet 50 mcg PO DAILY 02/04/21 05/31/21 History simvastatin 10 mg tablet 10 mg PO DAILY 02/04/21 05/31/21 History acetaminophen 650 mg PO PRN PRN 05/31/21 05/31/21 History artificial tears solution 1 drp OPHTHALMIC (EYE) PRN PRN 05/31/21 05/31/21 History atenolol 25 mg PO DAILY 05/31/21 05/31/21 History potassium chloride [Klor-Con M20] 20 meq PO 2XW 05/31/21 05/31/21 History Current Medications: Active Medications Acetaminophen (Acetaminophen 325 Mg Tablet) 650 mg PO PRN PRN PRN Reason: Pain Artificial Tears (Artificial Tears Ophth Soln 15 Ml Bottle) 1 drop EACH EYE PRN PRN PRN Reason: Dry Eyes Aspirin (Aspirin 325 Mg Tablet) 325 mg PO DAILY@0800 [facility] Last Admin: 06/02/21 09:02 Dose: 325 mg Documented by: Atenolol (Atenolol 25 Mg Tablet) 25 mg PO DAILY [facility] Last Admin: 06/02/21 09:02 Dose: 25 mg Documented by: Carbidopa/Levodopa (Carbidopa/Levodopa 25/100 Mg Tablet) 1 tablet PO Q8HR [facility] Last Admin: 06/02/21 05:38 Dose: 1 tablet Documented by: Citalopram Hydrobromide (Citalopram Hydrobromide 20 Mg Tablet) 20 mg PO DAILY [facility] Last Admin: 06/02/21 09:02 Dose: 20 mg Documented by: Levothyroxine Sodium (Levothyroxine Sodium 50 Mcg Tablet) 50 mcg PO DAILY@0630 [facility] Last Admin: 06/02/21 05:38 Dose: 50 mcg Documented by: Nitroglycerin (Nitroglycerin Ointment 1 Inch Dose) 1 inch TRANSDERM Q6HR [facility] Last Admin: 06/02/21 05:38 Dose: 1 inch Documented by: Nitroglycerin (Nitroglycerin Sl 0.4 Mg Tablet) 0.4 mg SUBLINGUAL Q5MIN PRN PRN Reason: Chest Pain Pantoprazole Sodium (Pantoprazole 40 Mg Tablet) 40 mg PO Q12HR [facility] Last Admin: 06/02/21 01:40 Dose: Not Given Documented by: Simvastatin (Simvastatin 10 Mg Tablet) 10 mg PO HS [facility] Last Admin: 06/01/21 20:07 Dose: 10 mg Documented by: Sedation/Anesthesia: No previous sedation/anesthesia problems (including family history). [facility] Past Medical History Medical History Colon cancer Colostomy in place HLD (hyperlipidemia) Hypothyroidism Parkinson disease Surgical History Surgical History (Updated 05/31/21 @ 16:13 by Prema Goldstein PA-C) History of creation of ostomy Hx of colectomy Family History Family History Other Cerebrovascular accident Diabetes mellitus Family history of allergic disorder Family history of kidney disease Family history of malignant neoplasm Hypertension Social History Social History Smoking status: Never smoker Alcohol intake: never Substance use: never Substance use type: does not use Living arrangements: with friend(s) Occupation/Education: retired Spiritual care concerns: No Mod Sed Physical Exam Physical Exam Pre Procedural Exam: Normal: Neck, Throat, Airway, Lungs, Heart Size, Heart Rate, Heart Rhythm, Neuro Exam and Extremities and Variation: Appearance ( elderly frail-appearing white female no distress) Hours since s
--- NOTE | 2021-06-02 09:47 | WPDCARDPROC ---
Cardiac Cath Procedure Note Date of procedure:: 06/02/21 Performing physician:: Chad Marlow MD Indication:: chest pain troponin elevation prior history of PCI to the right coronary artery Brief clinical history:: this is an 86-year-old woman with a history of coronary disease reportedly having undergone balloon angioplasty of her right coronary artery back in 1996. She enters the hospital with chest pain for several days her troponin level is slightly elevated. Initially the patient wanted no aggressive treatment but has now reconsider that decision is being brought for follow-up angiography. Procedure Procedure performed:: Coronary angiogram Sedation/Medication given:: no sedation Access site:: right femoral artery Estimated blood loss:: 15 cc Procedure note:: patient was brought to the cardiac catheterization lab in the postabsorptive state where the right femoral triangle was prepared in normal fashion. Anesthesia was given with 1% lidocaine infiltrated locally. Using the modified Seldinger technique a 5 Finnish sheath was placed into the femoral artery and coronary angiography was performed. I used a 5 Finnish FL4 catheter to engage and inject the left coronary artery in multiple projections. I then used a 5 Finnish JR4 catheter to engage and inject the right coronary artery in multiple projections. A left ventriculogram was not done to limit contrast exposure and because echocardiography yesterday demonstrates hyperdynamic LV systolic function and no valvular disease. At the conclusion of the procedure the angiograms were reviewed and the case was terminated. The patient was taken to the holding area for manual sheath removal she will be then taken back to the room for post cath recovery. The procedure was uncomplicated and she left the optical laboratory manager with no evidence of a groin hematoma. Findings:: Hemodynamics: Central aortic pressure is 168/80. The left ventricle was not entered during this procedure the left main coronary artery is of moderate caliber and is widely patent the left anterior descending is a medium caliber artery extending down around the apex. There is mild plaquing of about 30% stenosis in the mid LAD vessel is otherwise nicely patent with JUICE 3 flow. The circumflex is a moderate caliber artery giving rise to the marginal branches. There is mild luminal irregularity in the circumflex but no hemodynamically significant disease is identified. The right coronary artery is moderate to large in caliber and dominant to the posterior circulation. The right coronary artery has mild atherosclerosis but no flow-limiting lesions are seen. The 2nd portion of the RCA has approximately 30-40% stenosis. Conclusion:: 1. Right coronary dominant circulation with no significantly stenosed segments at this time. 2. Based on these data the patient's chest pain appears to be not the result of myocardial ischemia. Chad Marlow MD [facility]
[2021-06-02] MEDS: hydrALAZINE HCL 20 MG/ML VIAL 10 MG IV PUSH (10:10)
--- NOTE | 2021-06-02 11:05 | WPDCDIQUERY2 ---
CDI Query Clarification Request -05/31 ER physician noted clinical impression: Acute non-ST elevation myocardial infarction (NSTEMI) -ECG data reads: EKG #1: Interpretation: Sinus rhythm 68, SD is normal, axis normal QTC is normal nonspecific ST changes inferior leads EKG #2: Interpretation: Sinus rhythm 66, SD is normal, axis normal, QTC is normal nonspecific ST changes inferior leads EKG #3: Interpretation: Sinus rhythm 62, SD is normal, axis normal, QTC is normalized with ST changes inferior leads -No Dx of NSTEMI is noted anywhere else in the clinical documentation Please clarify if NSTEMI has been ruled in or ruled out, or unable to determine <Kira Garrison - Last Filed: 06/02/21 11:20> NSTEMI was ruled out by the normal findings on the left heart catheterization today that is noted. <SHAHID Holm - Last Filed: 06/02/21 16:35>
--- NOTE | 2021-06-02 11:55 | SUR.PHASEII ---
report given to Renetta doe
[2021-06-02] MEDS: SODIUM CHLORIDE 0.9% IV 1,000 ML 125 ML IV CONT (13:12)
--- NOTE | 2021-06-02 15:41 | PM.IMPN ---
Progress Note: A&P Additional Plan Assessment and Plan (1) Chest pain: Code(s): R07.9 - Chest pain, unspecified Status: Acute Assessment and Plan: - Patient has had intermittent chest pain for years and now it is constant even after nitro and full-dose aspirin. - Patient cannot be on 81 mg aspirin daily because there is area of her ostomy that bleeds and she only takes 81 mg aspirin as needed for chest discomfort. - CP ramped up overnight and was a 9/10. EKG shows sinus bradycardia, with subtle ST T-wave changes to the inferior leads. - ECHO showed preserved EF of >70%. LVSF is hyperdynamic and the Left diastolic function is normal. Right ventrical dimension and systolic function is normal. - Cardiology took to cleaner laboratory equipment today. No abnormal findings. - Monitor telemetry - Continue monitoring. (2) HLD (hyperlipidemia): Code(s): E78.5 - Hyperlipidemia, unspecified Status: Acute Assessment and Plan: - Continue statin. (3) Parkinson disease: Code(s): G20 - Parkinson's disease Status: Acute Assessment and Plan: - Continue her carbidopa levodopa (4) Hypothyroidism: Code(s): E03.9 - Hypothyroidism, unspecified Status: Acute Assessment and Plan: - TSH normal. Continue levothyroxine. (5) Leukopenia: Code(s): D72.819 - Decreased white blood cell count, unspecified Status: Acute Assessment and Plan: - Improving - Will need outpatient CBC in 1 week for further evaluation and work up by PCP - Continue monitoring. Will recheck labs in morning. (6) Macrocytic anemia: Code(s): D53.9 - Nutritional anemia, unspecified Status: Acute Assessment and Plan: - Patient has macrocytic anemia. - Patient also has some dark stool and is no longer taking pantoprazole - Normal iron panel, vitamin B12 and folic acid levels - Continue monitoring H&H. No acute signs of bleeding at this time. Time Spent With Patient Time with patient: 15 - 25 minutes Subjective Date/time seen: 06/02/21 1200 This pt. was examined at the bedside post [facility] after she continued to complain of chest pain and decided she did not want just symptomatic treatment with Nitro and ASA. The cath showed a right coronary dominant sirculation with no significantly stenosied segments at this time. The pt's chest pain is therefore not a result of Myocardial ischemia. The pt. continues to have slight pain, and no dyspnea. She has no other symptoms to report at this time such as N/V. We are awaiting Cardiology clearance for management and discharge. Review of Systems Review of Systems: No new symptoms to report. Exam Const: General: comfortable and no acute distress HENMT: Mouth: Yes moist mucous membranes Neck: Neck: supple and no JVD Resp: Effort & Inspection: normal respiratory effort Auscultation: clear to auscultation bilaterally Cardio: Rate: regular rate Rhythm: regular rhythm Heart sounds: no murmurs Other: Right femoral access without any signs of hematoma formation at this time. GI: GI Palp: Yes Soft to palpation and No Tenderness to palpation present (GI) Auscultation: normal bowel sounds Skin: General skin exam: normal color and no rashes or lesions noted Neuro: General: gait normal Speech: normal speech Motor exam (neuro): 5/5 motor strength present throughout and Normal motor muscle tone present throughout Extrem: General: normal to inspection Right upper extremity: normal to inspection Left upper extremity: normal to inspection Left lower extremity: normal to inspection Other: Unable to assess RLE due to the cath site being Right Femoral. Psych: Mental Status: mental status grossly normal Affect: normal affect T
[2021-06-02] MEDS: PANTOPRAZOLE 40 MG TABLET PO (20:13)
[2021-06-02] MEDS: SIMVASTATIN 10 MG TABLET PO (20:14)
[2021-06-03] VITALS (9 sets, daily range): BP systolic 132–165; BP diastolic 42–60; PULSE 57–74; RESP 18–20; TEMP 35.9–36.1; O2SAT 97–100
[2021-06-03] MEDS: NITROGLYCERIN OINTMENT 1 INCH DOSE TRANSDERM ×3 (02:01→13:06)
[2021-06-03 05:17] LABS: Basophils Percent Auto 0.3 % (0.2-1.2); Eosinophils Absolute Auto 0.1 K/mm3 (0-0.3); Eosinophils Percent Auto 1.5 % (0-4.4); Hematocrit 27.8 % (37.0-47.0); Hemoglobin 9.4 g/dL (12.0-15.0); Immature Granulocyte Absolute 0.15 K/mm3 (0.00-0.031); Immature Granulocyte Percent A 4.6 % (0-0.5); Lymphocytes Absolute Auto 1.12 K/mm3 (0.9-3.2); Lymphocytes Percent Auto 34.5 % (18.3-44.2); Mean Corpuscular HGB Conc 33.8 g/dl (32-36); Mean Corpuscular Hemoglobin 38.4 pg (26-34); Mean Corpuscular Volume 113.5 fl (80-100); Mean Platelet Volume 11.4 fl (7.4-10.4); Monocytes Absolute Auto 0.3 K/mm3 (0.1-0.6); Monocytes Percent Auto 8.9 % (2.6-8.5); Neutrophils Absolute Auto 1.6 K/mm3 (1.3-6.7); Neutrophils Percent Auto 50.2 % (45.5-73.1); Platelet Count Result 169 k/mm3 (150-375); Red Blood Count 2.45 M/mm3 (4.2-5.4); Red Cell Distribution Width 13.1 % (11.5-14.5); White Blood Count 3.3 K/mm3 (4.5-10.0)
[2021-06-03 05:37] LABS: Alanine Aminotransferase 7 U/L (4-35); Albumin Level 3.5 g/dL (3.5-5.1); Alkaline Phosphatase 47 U/L (38-126); Anion Gap 2 mmol/L (8-16); Aspartate Amino Transferase 26 U/L (14-36); Bilirubin,Total 0.9 mg/dL (0.2-1.3); Blood Urea Nitrogen 14 mg/dL (7-17); Calcium 8.5 mg/dL (8.4-10.2); Carbon Dioxide 26 mmol/L (22-30); Chloride 103 mmol/L (98-107); Estimated CRCL calculation 48 ml/min; Estimated Glomerular Filt Rate > 60; Glucose 95 mg/dL (65-110); Magnesium 2.1 mg/dL (1.6-2.3); Potassium 3.6 mmol/L (3.4-5.0); Sodium 131 mmol/L (137-145)
[2021-06-03] MEDS: LEVOTHYROXINE SODIUM 50 MCG TABLET PO (05:46)
[2021-06-03] MEDS: PANTOPRAZOLE 40 MG TABLET PO (09:10)
[2021-06-03] MEDS: CITALOPRAM HYDROBROMIDE 20 MG TABLET PO (09:10)
[2021-06-03] MEDS: atenoloL 25 MG TABLET PO (09:11)
[2021-06-03] MEDS: ASPIRIN 325 MG TABLET PO (09:12)
[2021-06-03] MEDS: CARBIDOPA/LEVODOPA 25/100 MG TABLET 1 TABLET PO ×2 (09:12→14:59)
--- NOTE | 2021-06-03 11:25 | PM.PNCARD ---
Progress Note: A&P Assessment and Plan (1) Acute coronary syndrome: Code(s): I24.9 - Acute ischemic heart disease, unspecified <SHAHID Quiroz - Last Filed: 06/03/21 13:03> Status: Acute <SHAHID Quiroz - Last Filed: 06/03/21 13:03> Assessment and Plan: 86-year-old female with history of CAD with remote history of RCA angioplasty in 1996-intervention report not available; PAF not on anticoagulation due to history of recurrent rectal bleeding based on outpatient notes; Parkinson's disease. Patient admitted to the hospital with chest pain with mixed features. CT chest negative for PE. Personally reviewed serial EKGs which showed sinus rhythm with subtle ST segment abnormality in the inferior leads and subtle ST depression in the leads 1 and aVL. Repeat EKG shows sinus bradycardia with subtle ST segment abnormality in the inferior leads. Peak troponin 0.37 which is trending downwards. Bedside echocardiogram on preliminary assessment shows preserved LV systolic function. Underwent coronary angiogram yesterday which revealed the following: The left main coronary artery is of moderate caliber and is widely patent The left anterior descending is a medium caliber artery extending down around the apex. There is mild plaquing of about 30% stenosis in the mid LAD vessel is otherwise nicely patent with JUICE 3 flow. The circumflex is a moderate caliber artery giving rise to the marginal branches. There is mild luminal irregularity in the circumflex but no hemodynamically significant disease is identified. The right coronary artery is moderate to large in caliber and dominant to the posterior circulation. The right coronary artery has mild atherosclerosis but no flow-limiting lesions are seen. The 2nd portion of the RCA has approximately 30-40% stenosis. Based on the above findings the patient's chest pain is not the result of myocardial ischemia Should be on low dose ASA, continue statin. <SHAHID Quiroz - Last Filed: 06/03/21 13:03> Additional Plan I have seen and examined this patient in collaboration with my nurse practitioner tj be. This is a 86-year-old patient who presents to the hospital with chest pain. She has a remote history of RCA angioplasty in 1996. She had abnormal EKG with some changes. She underwent cardiac catheterization that shows no obstructive CAD. Pulmonary embolism was ruled out. On examination personally found: Generally: Alert and oriented x3. No acute distress : HEENT normocephalic, atraumatic, no jaundice : Cardiovascular: Normal S1, S2. Murmur consistent with aortic stenosis Respiratory: Scattered crackles. Symmetric lung expansion Gastrointestinal: No distention or tenderness. Musculoskeletal: Bilateral lower extremity edema, no joint swelling. Skin: No rash. Neurology: Alert oriented x3. No focal deficit Psychiatric: Normal mood and affect. Allergy immunology: No urticaria. My assessment and plan is that this patient does not have a culprit lesion for the elevated troponins. Unsure the etiology of the chest pain at this time. Life threatening conditions were ruled out. Continue aspirin and statin. <Nolvia Kevin MD - Last Filed: 06/03/21 13:39> Subjective Date/time seen: 06/03/21 11:25 Cardiology follow up She feels well today. No chest pain or shortness of breath. <SHAHID Quiroz - Last Filed: 06/03/21 13:03> Review of Systems Constitutional: Constitutional: Reports no additional constitutional complaints <SHAHID Quiroz - Last Filed: 06/03/21 13:03> Eyes: Eyes: Reports no additional eye complaints <SHAHID Quiroz - Last Filed: 06/03/21 13:03> ENT: Reports system reviewed and no additional complaints, except as documented <SHAHID Quiroz - Last Filed: 06/03/21 13:03> Cardiovascular: Cardiovascular: Reports as per HPI <SHAHID Quiroz - Last Filed: 06/03/21 13:03>
[2021-06-03 12:26] LABS: Glucose Point of Care 117 mg/dl (65-105)
--- NOTE | 2021-06-03 14:10 | PM.DS ---
DS: Admitting Diagnosis Discharge Date 06/03/2021 Admitting Diagnosis Chest Pain, HLD, Parkinson Disease, hypothyroidism, Leukopenia, Macrocytic anemia DS: Discharge Diagnosis Discharge Diagnosis (1) Macrocytic anemia: Onset Date: Unknown Code(s): D53.9 - Nutritional anemia, unspecified Status: Chronic Assessment and Plan: - Known history of macrocytic anemia. - No overt bleeding. - No dark stools during admission. She will need to have recheck of Hgb as outpatient. - Normal iron, B12 and folic levels. (2) Leukopenia: Onset Date: Unknown Qualifiers: Leukopenia type: unspecified Qualified Code(s): D72.819 - Decreased white blood cell count, unspecified Code(s): D72.819 - Decreased white blood cell count, unspecified Status: Chronic Assessment and Plan: - WBC's waxing and waning. Today is 3.3. - Will need level checked within the next week. (3) Chest pain: Onset Date: Unknown Qualifiers: Chest pain type: other chest pain Qualified Code(s): R07.89 - Other chest pain Code(s): R07.9 - Chest pain, unspecified Status: Chronic Assessment and Plan: - ACS ruled out with [facility]. There is no cardiac causation for her chest pain. - Pain is constant. - Pt. has reportedly had difficulties from ASA 81 mg due to stomal irritation, but per Cardiology recommendations, will try again. - LHC yesterday was negative. - OK to discharge per Cardiology with ASA 81 mg and Statin. (4) HLD (hyperlipidemia): Onset Date: Unknown Qualifiers: Hyperlipidemia type: mixed hyperlipidemia Qualified Code(s): E78.2 - Mixed hyperlipidemia Code(s): E78.5 - Hyperlipidemia, unspecified Status: Chronic Assessment and Plan: - Continue Statin therapy. - Continue heart healthy diet. (5) Parkinson disease: Onset Date: Unknown Code(s): G20 - Parkinson's disease Status: Chronic Assessment and Plan: - Continue Carbidopa/Levidopa (6) Hypothyroidism: Qualifiers: Hypothyroidism type: unspecified Qualified Code(s): E03.9 - Hypothyroidism, unspecified Code(s): E03.9 - Hypothyroidism, unspecified Status: Chronic Assessment and Plan: - TSH is normal. - Continue Levothyroxine. DS: Summary Hospital Course Hospital Course: This 85 year old female patient with significant PMH of CAD with prior RI, colon cancer, HLD, hypothyroidism, Parkinson's disease and colostomy after history of colectomy, presented to the ER with complaints of having chest pain. She was evaluated in the ED and was found to have elevated troponin's. These remained elevated without any EKG changes. Cardiology was consulted and pt. was taken to the geophysical laboratory director yesterday and the results were negative for any acute findings. She has severe Parkinsonian Dementia and is alert and oriented to self only, and it is difficult to assess the true severity of her complaints. She has remained stable without any additional acute issues. Chronic issues including macrocytic anemia, leukopenia, HLD, hypothyroidism, and Parkinson's disease remain stable. She appears to be in no distress at this time. Cardiology is ready for discharge with recommendations of once again attempting ASA 81 mg daily and to continue statin therapy. She is to follow up with PCP in one week. Cardiology did not want a follow up. Time Spent with Patient Time attestation: Total time spent providing and/or coordinating discharge services: 30 minutes Exam Const: General: comfortable and no acute distress; No in distress Limitations: no limitations HENMT: Mouth: Yes moist mucous membranes Neck: Neck: supple and no JVD Lymphatic: lymphadenopathy not noted Resp: Effort & Inspection: normal respiratory effort Auscultation: clear to auscultation bilaterally Cardio: Rate: regular rate Rhythm: regular rhythm GI: GI Palp: Yes Soft to palpation and No Tendernes
== END 2021-06-03 15:25 | disposition home or self-care (01) | DRG 287 ==
LOC: ANHED 12:39 → ANHIMU 15:12
PROVIDERS: Physician Assistant; Specialist; Admitting Provider Family Medicine; Emergency Provider Emergency Medicine; PCP Nurse Practitioner Adult Health; Visit Provider Nurse Practitioner Adult Health
PROC: 4A023N7 Measurement of Cardiac Sampling and Pressure, Left Heart, Percutaneous Approach (ICD-10-PCS; CPT 93454; principal; 2021-06-02 09:15)
DX: R07.89 Other chest pain (principal); E87.1 Hypo-osmolality and hyponatremia; D53.9 Nutritional anemia, unspecified; D72.819 Decreased white blood cell count, unspecified; E78.5 Hyperlipidemia, unspecified; G20 Parkinson's disease; E03.9 Hypothyroidism, unspecified; I25.10 Atherosclerotic heart disease of native coronary artery without angina pectoris; I25.2 Old myocardial infarction; Z85.038 Personal history of other malignant neoplasm of large intestine; Z93.3 Colostomy status; Z87.891 Personal history of nicotine dependence
CPT/HCPCS: 36415; 71045; 71275; 80048; 80053; 82607; 82728; 82746; 82948; 83540; 83550; 83605; 83615; 83690; 83735; 84443; 84466; 84484; 85025; 85027; 85610; 85730; 86140; 93005; 93454; 96365; 96372; 96375; 96376; 97161; 97165; 99291; A9270; C1887; C1894; C8929; C9113; G0378; J0131; J0360; J1644; J1650; J2250; J3010; J7030; J7040; Q9957; Q9967

== ENCOUNTER 2021-06-08 11:07 | Outpatient (CLI) | payer MEDICARE, SELFPAY ==
[2021-06-08 11:26] LABS: Hematocrit 30.4 % (37.0-47.0); Mean Corpuscular HGB Conc 32.9 g/dl (32-36); Mean Corpuscular Hemoglobin 38.3 pg (26-34); Mean Corpuscular Volume 116.5 fl (80-100); Mean Platelet Volume 10.8 fl (7.4-10.4); Platelet Count Result 208 k/mm3 (150-375); Red Blood Count 2.61 M/mm3 (4.2-5.4); Red Cell Distribution Width 13.3 % (11.5-14.5)
[2021-06-08 11:29] LABS: Blood Urea Nitrogen 10 mg/dL (8-26); Carbon Dioxide 26 mmol/L (22-30); Chloride 97 mmol/L (98-109); Estimated Glomerular Filt Rate > 60; Glucose 143 mg/dL (70-105); Potassium 3.4 mmol/L (3.5-4.9); Sodium 136 mmol/L (138-146)
[2021-06-08 11:39] LABS: Atypical Lymphocytes Present; Band Neutrophils Percent 17 % (0-6); Eosinophils Absolute Manual 0.06 K/mm3 (0.02-0.5); Eosinophils Percent Manual 2 % (0-4); Lymphocytes Absolute Manual 1.02 K/mm3 (1.1-4.5); Monocytes Absolute Manual 0.06 K/mm3 (0.1-0.90); Monocytes Percent Manual 2 % (3-9); Neutrophils Absolute Manual 1.86 K/mm3 (1.7-7.2); Neutrophils Percent Manual 45 % (46-73); Ovalocytes 1+ (NORMAL); Platelet Estimate Adequate (Adequate); Poikilocytosis 1+ (NORMAL); Total Cells Counted 100
[2021-06-08 14:49] LABS: Alanine Aminotransferase 15 U/L (4-35); Albumin Level 3.7 g/dL (3.5-5.1); Alkaline Phosphatase 52 U/L (38-126); Anion Gap 1 mmol/L (8-16); Aspartate Amino Transferase 66 U/L (14-36); Bilirubin,Total 0.6 mg/dL (0.2-1.3); Blood Urea Nitrogen 12 mg/dL (7-17); Calcium 9.1 mg/dL (8.4-10.2); Carbon Dioxide 31 mmol/L (22-30); Chloride 100 mmol/L (98-107); Estimated Glomerular Filt Rate > 60; Glucose 144 mg/dL (65-110); Potassium 3.5 mmol/L (3.4-5.0); Sodium 132 mmol/L (137-145)
[2021-06-08 15:20] LABS: Carcinoembryonic Antigen 1.1 ng/mL (0.0-3.0)
[2021-06-08 15:55] LABS: Folic Acid 17.6 ng/mL (2.76->20)
[2021-06-08 22:12] LABS: Iron 127 ug/dL (37-170)
[2021-06-08 22:30] LABS: Percent Iron Saturation 43 % (20-50)
[2021-06-11 09:31] LABS: Methylmalonic Acid 158 nmol/L (87-318)
== END 2021-06-08 11:08 | disposition home or self-care (01) ==
PROVIDERS: PCP Nurse Practitioner Adult Health; Visit Provider Internal Medicine Hematology & Oncology
DX: C20 Malignant neoplasm of rectum (principal); D64.9 Anemia, unspecified
CPT/HCPCS: 36415; 80053; 82378; 82607; 82728; 82746; 83540; 83550; 83921; 84443; 85025

== ENCOUNTER 2021-10-07 11:37 | Outpatient (CLI) | payer MEDICARE, SELFPAY ==
[2021-10-07 12:08] LABS: Mean Corpuscular HGB Conc 32.9 g/dl (32-36); Mean Corpuscular Volume 124.5 fl (80-100); Mean Platelet Volume 11.7 fl (7.4-10.4); Platelet Count Result 164 k/mm3 (150-375); Red Blood Count 1.39 M/mm3 (4.2-5.4); Red Cell Distribution Width 14.4 % (11.5-14.5)
[2021-10-07 12:13] LABS: White Blood Count 1.7 K/mm3 (4.5-10.0)
[2021-10-07 12:14] LABS: Hematocrit 17.3 % (37.0-47.0); Hemoglobin 5.7 g/dL (12.0-15.0)
[2021-10-07 12:45] LABS: Anisocytosis 1+ (NORMAL); Band Neutrophils Percent 40 % (0-6); Metamyelocytes Percent 8 %; Neutrophils Absolute Manual 1.15 K/mm3 (1.7-7.2); Neutrophils Percent Manual 28 % (46-73); Platelet Estimate Adequate (Adequate); Total Cells Counted 25
[2021-10-07 13:26] LABS: Iron 199 ug/dL (37-170)
[2021-10-07 13:27] LABS: Alanine Aminotransferase 7 U/L (6-35); Albumin Level 3.9 g/dL (3.5-5.1); Alkaline Phosphatase 61 U/L (38-126); Anion Gap 5 mmol/L (8-16); Aspartate Amino Transferase 15 U/L (14-36); Bilirubin,Total 0.6 mg/dL (0.2-1.3); Blood Urea Nitrogen 14 mg/dL (7-17); Calcium 9.1 mg/dL (8.4-10.2); Carbon Dioxide 26 mmol/L (22-30); Chloride 100 mmol/L (98-107); Estimated Glomerular Filt Rate > 60; Glucose 171 mg/dL (65-110); Sodium 131 mmol/L (137-145)
[2021-10-07 13:38] LABS: Percent Iron Saturation 64 % (20-50)
[2021-10-07 13:59] LABS: Carcinoembryonic Antigen 1.1 ng/mL (0.0-3.0)
[2021-10-07 15:04] LABS: Vitamin B12 > 1000.0 pg/mL (239-931)
== END 2021-10-07 11:38 | disposition home or self-care (01) ==
PROVIDERS: PCP Nurse Practitioner Adult Health; Visit Provider Internal Medicine Hematology & Oncology
DX: D64.9 Anemia, unspecified (principal); C20 Malignant neoplasm of rectum
CPT/HCPCS: 36415; 80053; 82378; 82607; 82728; 82746; 83540; 83550; 85025

== ENCOUNTER 2021-10-07 15:26 | Observation (INO) | payer MEDICARE, SELFPAY ==
[2021-10-07] VITALS (24 sets, daily range): BP systolic 119–162; BP diastolic 39–84; PULSE 65–75; RESP 12–20; TEMP 36.1–36.6; O2SAT 77–100; BMI 26.5
--- NOTE | ~2021-10-07 | XR_ITS ---
MODIFIED ESOPHAGRAM HISTORY: Parkinson's disease. Poor appetite. TECHNIQUE: Modified barium esophagram was performed on 10/08/2021. I administered fluoroscopy and perfo rmed the exam with speech pathologist. Patient was seated for lateral fluoroscopic imaging for inges tion of thin liquids, pudding, solids and quantified amounts, followed by thin liquids in uncontrolle d amounts. This was recorded on tape. A single fluoroscopic spot image was also recorded. The DAP for this procedure was 0.805 Gycm2. The amount of fluoroscopy time used during this procedure was 0.9 mi nutes. FINDINGS: Oral stage: Adequate function. Pharyngeal stage: Adequate function. Cervical/esophageal stage: Adequate function. IMPRESSION: Patient tolerated regular consistency oral feedings in the upright position. Please tarik elate with speech pathologist findings and specific feeding recommendations. Reviewed, dictated and finalized at location A. IMPRESSION: Patient tolerated regular consistency oral feedings in the upright position. Please correlate with speech pathologist findings and specific feedi ng recommendations.
--- NOTE | ~2021-10-07 | CT_ITS ---
EXAMINATION: CT abdomen pelvis w con INDICATION: Anemia, history of colon cancer TECHNIQUE: Computed tomographic images of the abdomen and pelvis were obtained after the administrati on of 100 cc of Omnipaque 300 intravenous contrast. The dose-length product (DLP) was 571.29 mGy-cm. Automated exposure control and iterative reconstruction technique were employed. COMPARISON: 12/06/2018 FINDINGS: Minimal dependent atelectasis is present in the lung bases. The heart size is normal. The g allbladder is surgically absent. The liver is diffusely low in attenuation when compared with the spl een, consistent with hepatic steatosis. Punctate calcifications in an otherwise normal spleen likely represent healed granulomatous disease. The pancreas and adrenal glands are normal. Cysts of the kidn eys measure up to 2.7 cm on the right. There is calcified atherosclerosis of the aorta and many of th e other arteries. No pathologically enlarged abdominal or pelvic lymph nodes are identified. There is no free intraperitoneal gas or evidence of bowel obstruction. There are changes of distal colectomy with a diverting colostomy in the left lower quadrant. There is severe lumbar spondylosis. There is a fat-containing umbilical hernia. IMPRESSION: 1. No CT correlate for the patient's symptoms. Reviewed, dictated and finalized at location F.
--- NOTE | 2021-10-07 15:49 | PC.NURSE ---
PT REPORTS SHE WENT TO ONCOLOGIST FOR ROUTINE CHECK-UP, PMH OF COLON CANCER WITH RESECTION ON COLOSTOMY, AND REPORTS SENT TO ED BECAUSE BLOOD COUNTS ARE LOW. PT ALERT TO NORMAL SELF DAUGHTER REPORTS PT HAS PARKINSON'S DEMENTIA
[2021-10-07 15:56] LABS: Eosinophils Percent Auto 1.5 % (0-4.4); Immature Granulocyte Absolute 0.05 K/mm3 (0.00-0.031); Immature Granulocyte Percent A 2.5 % (0-0.5); Lymphocytes Percent Auto 39.8 % (18.3-44.2); Mean Corpuscular HGB Conc 33.5 g/dl (32-36); Mean Corpuscular Hemoglobin 41.8 pg (26-34); Mean Corpuscular Volume 124.8 fl (80-100); Mean Platelet Volume 11.9 fl (7.4-10.4); Monocytes Absolute Auto 0.3 K/mm3 (0.1-0.6); Monocytes Percent Auto 13.9 % (2.6-8.5); Neutrophils Absolute Auto 0.9 K/mm3 (1.3-6.7); Neutrophils Percent Auto 42.3 % (45.5-73.1); Platelet Count Result 153 k/mm3 (150-375); Red Blood Count 1.41 M/mm3 (4.2-5.4); Red Cell Distribution Width 14.7 % (11.5-14.5)
[2021-10-07 16:06] LABS: Alanine Aminotransferase 8 U/L (6-35); Albumin Level 4.1 g/dL (3.5-5.1); Alkaline Phosphatase 60 U/L (38-126); Anion Gap 5 mmol/L (8-16); Aspartate Amino Transferase 15 U/L (14-36); Bilirubin,Total 0.6 mg/dL (0.2-1.3); Blood Urea Nitrogen 17 mg/dL (7-17); Calcium 9.1 mg/dL (8.4-10.2); Carbon Dioxide 25 mmol/L (22-30); Chloride 99 mmol/L (98-107); Estimated Glomerular Filt Rate 60; Glucose 117 mg/dL (65-110); Potassium 4.4 mmol/L (3.4-5.0); Sodium 129 mmol/L (137-145)
[2021-10-07 16:21] LABS: INR 1.1; Prothrombin Time 14.1 Seconds (11.1-14.7)
[2021-10-07 16:22] LABS: Partial Thromboplastin Time 29.7 SECONDS (22.3-36.8)
[2021-10-07 16:24] LABS: Hematocrit 17.6 % (37.0-47.0); Hemoglobin 5.9 g/dL (12.0-15.0)
[2021-10-07 16:25] LABS: Anisocytosis 2+ (NORMAL); Platelet Estimate Adequate (Adequate)
[2021-10-07 16:26] LABS: Atypical Lymphocytes Present; Macrocytosis 2+ (NORMAL)
--- NOTE | 2021-10-07 17:35 | ED.RECABL ---
HPI - Recheck/Abnormal Lab/Rx General Chief Complaint: Recheck/Abnormal Lab/Rx Stated Complaint: LOW BLOOD COUNT Time Seen by Provider: 10/07/21 16:04 Source: patient History of Present Illness HPI narrative: Patient presents with a anemia. Patient was following up with her scale shooter oncologist for 4-month follow-up appointment and had routine blood draw prior to that appointment and was noted to have a severe anemia with a hemoglobin of 5.7 and was referred to the ER for evaluation. Patient has been feeling unwell for approximately 2 months but denies any specific symptoms such as focal areas of pain chest pain, abdominal pain. Denies any recent fevers, cough, congestion. She does have an ostomy that was placed many years ago and reports overall ostomy has been doing well does note a mild decrease in her ostomy output but no significant color bleeding to the area. Denies any nausea vomiting Related Data Home Medications Medication Instructions Recorded Confirmed carbidopa 25 mg-levodopa 100 mg 1 tablet PO TID 02/04/21 08/10/21 tablet citalopram 40 mg tablet 20 mg PO DAILY 02/04/21 08/10/21 levothyroxine 50 mcg tablet 50 mcg PO DAILY 02/04/21 08/10/21 (Synthroid) simvastatin 10 mg tablet 10 mg PO DAILY 02/04/21 08/10/21 acetaminophen 325 mg tablet 650 mg PO PRN PRN Pain 05/31/21 08/10/21 artificial tears solution eye drops 1 drp ophthalmic (eye) PRN PRN Dry 05/31/21 08/10/21 Eyes atenolol 25 mg tablet 25 mg PO DAILY 05/31/21 08/10/21 potassium chloride 20 mEq 20 meq PO 2XW 05/31/21 08/10/21 tablet,extended release(part/cryst) (Klor-Con M) Allergies Allergy/AdvReac Type Severity Reaction Status Date / Time lanolin Allergy Severe ITCHING Verified 10/07/21 19:06 morphine Allergy Mild Itching Verified 10/07/21 19:06 meperidine Allergy Unknown Itching Verified 10/07/21 19:06 sulfur dioxide Allergy Unknown Unknown Verified 10/07/21 19:06 tramadol Allergy Unknown Dizziness Verified 10/07/21 19:06 Sulfa (Sulfonamide AdvReac Mild Nausea and Verified 10/07/21 19:06 Antibiotics) Vomiting Review of Systems Review of Systems: CONSTITUTIONAL: Denies fever, chills, or sweats. EYES: Denies visual changes, redness, or discharge. ENT: Denies rhinorrhea, congestion, sore throat, or otalgia. CARDIOVASCULAR: Denies chest pain, palpitations, or edema. RESPIRATORY: Denies cough or dyspnea. GASTROINTESTINAL: Denies abdominal pain, nausea, vomiting, or diarrhea. GENITOURINARY: Denies dysuria or hematuria. SKIN: Denies rash or itching. MUSCULOSKELETAL: Denies back pain, joint pain, or myalgia. NEUROLOGIC: Denies headache, numbness, dizziness, or weakness. PSYCHIATRIC: Denies anxiety or depression. All systems reviewed & are unremarkable except as noted in HPI and below PMFSH Past Medical History Medical History Colon cancer Colostomy in place HLD (hyperlipidemia) (Unknown) Hypothyroidism Parkinson disease (Unknown) Surgical History Surgical History History of creation of ostomy Hx of colectomy Family History Family History (Updated 10/07/21 @ 19:46 by Wandy Lazar RN) Mother Cerebrovascular accident Unknown No problems noted. Son Diabetes mellitus Sibling Family history of kidney disease Unknown Family history of kidney disease Other Family history of allergic disorder Family history of malignant neoplasm Hypertension Social History Social History Smoking packs per day: 0.2 Smoking cigarettes per day: 4.0 Years smoked: 5 Smoking pack-years: 1.00 Smoking status: Former smoker Alcohol intake: never Substance use: never Substance use type: does not use Spiritual care concerns: No Exam Narrative: GENERAL: Well-appearing, well-nourished, and in no acute distress. HEAD: Normocephalic, atraumatic. EYES: PE
--- NOTE | 2021-10-07 17:45 | PM.IMHP ---
H&P: HPI History of Present Illness Date/Time: 10/07/21 17:45 Chief Complaint: Anemia. Narrative: This is a very pleasant 86-year-old female with history of dementia, Parkinson, coronary artery disease, congestive heart failure, hypertension, diverticulitis, hypothyroidism, and colon cancer status post colectomy and chemoradiotherapy who presented to the ER at the request of Dr. Choi for further evaluation after she was found to be anemic on labs drawn this morning in anticipation an upcoming, routine appointment. She can not provide a pretty good history however due to her dementia she is at times forgetful and her long-time friend power of tax attorney Sheryl provides additional information, with the patient's permission. The patient tells me that she has not been feeling good for ?awhile? but eventually she narrows it down to about the last 2 months. She has vague complaints to include decreased energy, increased in fatigue, and poor appetite with weight loss. She also mentions chest pain which has been an intermittent but ongoing problem for quite some time and in fact she had a cardiac catheterization done this spring which ruled out cardiac etiology. In any event, she was found to have a hemoglobin below 6 and she was told to come in today for evaluation. With further questioning she has not noticed any evidence of blood loss, specifically denying epistaxis, hematemesis, melena, hematochezia, and hematuria. She has also felt a bit short of breath the last couple of days with some lightheadedness on position changes and rare racing heart. Review of Systems Review of Systems: Twelve systems were reviewed. No fever, chills, or sweats. No syncope or presyncope. No recent cold or flu symptoms. No current chest pain. Except as documented, all other systems were reviewed and are negative. [facility] Past Medical History Medical History (Updated 10/07/21 @ 20:59 by Zahra Zamorano PA-C) Chronic hyponatremia Colon cancer Status post colectomy and chemo radiotherapy. Congestive heart failure Coronary artery disease Dementia in Parkinson's disease Depression with anxiety Diverticulitis Gastroesophageal reflux disease Hyperlipidemia Hypothyroidism Kidney stones Osteoarthritis Osteoporosis Parkinson disease Surgical History Surgical History (Updated 10/07/21 @ 20:53 by Zahra Zamorano PA-C) History of appendectomy (1985) History of arthroplasty of right knee History of bilateral cataract extraction History of cardiac catheterization History of cholecystectomy (02/2006) History of colectomy (03/28/17) History of colostomy History of coronary artery stent placement History of cystoscopy History of partial nephrectomy (1955) History of right breast biopsy Status post trigger finger release Family History Family History Mother Cerebrovascular accident Unknown No problems noted. Son Diabetes mellitus Sibling Family history of kidney disease Unknown Family history of kidney disease Other Family history of allergic disorder Family history of malignant neoplasm Hypertension Social History Social History (Updated 10/07/21 @ 20:54 by Zahra Zamorano PA-C) Social History: Healthcare power of tax attorney: Sheryl Zacarias, friend and business continuity planner. Code status: Do not resuscitate. Smoking packs per day: 0.2 Smoking cigarettes per day: 4.0 Years smoked: 5 Smoking pack-years: 1.00 Smoking status: Former smoker Alcohol intake: never Substance use: never Substance use type: does not use Additional living arrangements comments: The patient lives with a friend who is her 24 hour business continuity planner. Additional occupation/education comments: Retired from [employer]. Spiritual care concerns: No Meds Home Medications and Allergies Home Medications Medication Instructions Recorded Confirmed Type carbidopa 25 mg-levodopa 100 mg 1 tablet P
[2021-10-07] MEDS: SODIUM CHLORIDE 0.9% IV 250 ML 30 ML IV CONT (17:50)
--- NOTE | 2021-10-07 18:51 | ADMGEN ---
This patient, Bonnie Beltran, was admitted to Medical Room 257-01. Patient/family oriented to hospital policies and general routines including ID bracelet, bed and alarms, visiting hours, pain management, procedures, bathroom and other care routines, personal items, smoking policy, room service/diet, and visiting hours. Information on how to activate the Rapid Response Team has been discussed. Patient/Family are encouraged to report perceived risks to care and to ask questions if they do not understand what they are told or what they should do.
[2021-10-08 00:33] VITALS: BP 154/54; PULSE 63; RESP 20; TEMP 36.4; O2SAT 98
[2021-10-08] MEDS: SIMVASTATIN 10 MG TABLET PO ×2 (01:30→21:34)
[2021-10-08] MEDS: CARBIDOPA/LEVODOPA 25/100 MG TABLET 1 TABLET PO ×3 (01:30→17:00)
[2021-10-08] MEDS: SODIUM CHLORIDE 0.9% IV 1,000 ML 100 ML IV CONT (01:30)
[2021-10-08 05:21] VITALS: BP 149/53; PULSE 69; RESP 20; TEMP 36.4; O2SAT 99
[2021-10-08 05:37] LABS: Hematocrit 26.3 % (37.0-47.0); Immature Platelet Fraction Pct 9.1 % (0.9-11.2); Mean Corpuscular HGB Conc 34.2 g/dl (32-36); Mean Corpuscular Hemoglobin 35.2 pg (26-34); Mean Corpuscular Volume 102.7 fl (80-100); Mean Platelet Volume 11.8 fl (7.4-10.4); Platelet Count Result 132 k/mm3 (150-375); Red Blood Count 2.56 M/mm3 (4.2-5.4)
[2021-10-08 05:50] LABS: Anion Gap 3 mmol/L (8-16); Blood Urea Nitrogen 14 mg/dL (7-17); Calcium 8.5 mg/dL (8.4-10.2); Carbon Dioxide 25 mmol/L (22-30); Chloride 104 mmol/L (98-107); Estimated CRCL calculation 53 ml/min; Estimated Glomerular Filt Rate > 60; Glucose 95 mg/dL (65-110); Magnesium 2.2 mg/dL (1.6-2.3); Potassium 4.2 mmol/L (3.4-5.0); Sodium 132 mmol/L (137-145)
[2021-10-08] MEDS: LEVOTHYROXINE SODIUM 50 MCG TABLET PO (06:06)
--- NOTE | 2021-10-08 09:30 | PM.IMPN ---
Progress Note: A&P Assessment and Plan (1) Macrocytic anemia: Code(s): D53.9 - Nutritional anemia, unspecified Status: Acute Assessment and Plan: MCV has gradually increased over the past 1 year with a gradual fall and hemoglobin in white blood cell count. Lab work from 10/07/2021 was reviewed including iron studies and B12 and folate. Concerns are now for possible myelodysplastic disorder Consulted Dr. Choi for possible bone marrow biopsy Transfuse packed red blood cells to obtain a appropriate hemoglobin Monitor serum electrolytes, CBC, hemoglobin/hematocrit q.8 hours. If hemoglobin drops below 7 transfuse packed red blood cells Monitor for bloody bowel movements,chest pain,SOB or dizziness/lightheadedness Diet: NPO DVT Px: SCDs Avoid anti-coagulations (2) Chronic hyponatremia: Code(s): E87.1 - Hypo-osmolality and hyponatremia Status: Acute Assessment and Plan: Baseline sodium ranges between 131 and 136. Patient was hydrated overnight with improvement of serum sodium. d/c iv fluids (3) Hypothyroidism: Qualifiers: Hypothyroidism type: unspecified Qualified Code(s): E03.9 - Hypothyroidism, unspecified Code(s): E03.9 - Hypothyroidism, unspecified Status: Chronic Assessment and Plan: Continue levothyroxine and check TSH. (4) Parkinson disease: Code(s): G20 - Parkinson's disease Status: Chronic Assessment and Plan: Continue carbidopa-levodopa. Initiate fall precautions. Speech to repeated perform a modified barium swallow (5) Dementia in Parkinson's disease: Code(s): G20 - Parkinson's disease; F02.80 - Dementia in other diseases classified elsewhere without behavioral disturbance Status: Acute Assessment and Plan: Her friend and caretakers going to be staying with her during her hospitalization. (6) Congestive heart failure: Code(s): I50.9 - Heart failure, unspecified Status: Acute Assessment and Plan: She appears clinically compensated. Monitor fluid volume status Patient had an echocardiogram performed in May of 2021 which revealed an LVEF of 70% with normal diastolic function. (7) Depression with anxiety: Code(s): F41.8 - Other specified anxiety disorders Status: Acute Assessment and Plan: Continue citalopram. Subjective Date/time seen: 10/08/21 09:30 Interval history: Patient is alert to self and place however she is extremely confused and has short-term memory loss. Patient has a caregiver at bedside that was able to help with history and was provided education for plan of care for the day. She was notified of pot possible bone marrow biopsy today, modified barium swallow and the reason for NPO status. Patient continues received gentle IV fluid resuscitation. After receiving packed red blood cells patient's hemoglobin is 9.[address] choi with hematology is following. Patient follows was physician on the outpatient basis. Hold anticoagulation. Patient has a stoma to the left lower quadrant, appears pink. Patient did have an echocardiogram performed in May of 2021 which revealed an LVEF of greater than 70% and normal diastolic function. Review of Systems Review of Systems: All systems reviewed & are unremarkable except as noted in HPI and below Exam Narrative: General: Chronically ill-appearing female in the semi-Mauro position in bed in no distress. Weight: 66.9 kg. BMI: 26.5. HEENT: PERRL, EOMI. Conjunctivae anicteric. Moist mucous membranes. Neck: Supple. No JVD or lymphadenopathy. Respiratory: Lungs are clear to auscultation bilaterally. Cardiovascular: Regular rate and rhythm with S1-S2. No significant murmur. Gastrointestinal: Abdomen is soft, nontender, and nondistended with positive bowel sounds. Ostomy in the left abdomen containing a small amount of brown liquid stool. No blood noted. Stoma pink.
[2021-10-08 10:53] VITALS: BMI 26.7
--- NOTE | 2021-10-08 12:00 | STIPEVAL ---
Thank you for referring Bonnie Beltran to [facility].? The patient is scheduled to be seen for therapy? ____x/week for ___ weeks. Please review, sign, date and return this plan of care LESLIE. I agree with and certify that the following plan of care is medically necessary. Referring Physician Date Admitting Provider: Desmond Poole MD Attending Provider: Desmond Poole MD Referring Provider: EDWINA Inpatient Evaluation Start: 10/08/21 11:46 Freq: Status: Active Protocol: Document 10/08/21 11:48 [facility] (Rec: 10/08/21 11:59 [facility] [email or web address]) Therapy Assessment Status Assessment Status Assessment Status Evaluation Pain Assessment Self Report Self Report Pain Level 0 Pain Score Pain Score 0: Self Report Modified Barium Swallow Evaluation Recent Swallowing History Reports Dysphagia No History of Dysphagia No History of Related Medical Diagnosis Parkinson's Disease History of Pneumonia No Reported Difficult Consistencies Unable to Identify Intake Method Prior to Swallow Oral Evaluation Diet Prior to Swallow Evaluation Regular, Level 7 Liquid Consistency Prior to Swallow Thin (0) Evaluation Orthodontic/Dental Appliances Full Dentures, Lower,Full Dentures, Upper Consistency Solid Consistency Method of Presentation dominik cracker piece held by hand of LIGHT RAIL TRANSIT OPERATOR Oral Preparatory Symptoms None Oral Phase Symptoms None Pharyngeal Phase Symptoms None Severity of Vallecular Residue None - 0% No Residue Severity of Pyriform Sinus Residue None - 0% No Residue 8 Point Laryngeal Penetration-Aspiration Material Does Not Enter Airway Scale Thin Uncontrolled 2 Method of Presentation Cup Oral Preparatory Symptoms None Oral Phase Symptoms None Pharyngeal Phase Symptoms None Severity of Vallecular Residue None - 0% No Residue Severity of Pyriform Sinus Residue None - 0% No Residue 8 Point Laryngeal Penetration-Aspiration Material Does Not Enter Airway Scale Thin Uncontrolled 1 Method of Presentation Cup Oral Preparatory Symptoms None Oral Phase Symptoms None Pharyngeal Phase Symptoms None Severity of Vallecular Residue None - 0% No Residue Severity of Pyriform Sinus Residue None - 0% No Residue 8 Point Laryngeal Penetration-Aspiration Material Does Not Enter Airway Scale Disorders Oral Preparatory Stage Disorders None Oral Stage Disorders None Pharyngeal Stage Disorders None Cervical-Esophageal Stage Disorders None Study Modifications Postures Attempted None Postures Effective
--- NOTE | 2021-10-08 12:01 | PCSTNOTE ---
Patient seen for MBS, swallowing WFL
[2021-10-08 12:23] VITALS: PULSE 64
[2021-10-08] MEDS: atenoloL 25 MG TABLET PO (12:23)
[2021-10-08] MEDS: CITALOPRAM HYDROBROMIDE 20 MG TABLET 40 MG PO (12:23)
--- NOTE | 2021-10-08 13:58 | PCNSR ---
On 10/08/21, the student, Trever Berry, provided care and completed [facility] documentation on this patient. I have reviewed the student's documentation and agree with the findings.
[2021-10-08 14:10] VITALS: BP 146/46; PULSE 65; RESP 18; TEMP 36.6; O2SAT 100
--- NOTE | 2021-10-08 16:46 | PDONCCN ---
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 She was last seen in the hospital in June of 2019. She also has a history of macrocytic anemia and takes vitamin B12. Patient has appointment in my office today and labs were done that showed pancytopenia with WBC of 2.0 and hemoglobin of 5.9. There is no blood in the stool but there is some erythema at the ostomy site. She has been complaining of tiredness and fatigue. Denies any fever chills and weight loss. No other new complaints. Review of Systems - Review of Systems All systems reviewed & are unremarkable except as noted in HPI and [facility] Medical History: Medical History (Last Updated 10/07/21 @ 20:59 by Zahra Zamorano PA-C) Chronic hyponatremia Colon cancer Status post colectomy and chemo radiotherapy. Congestive heart failure Coronary artery disease Dementia in Parkinson's disease Depression with anxiety Diverticulitis Gastroesophageal reflux disease Hyperlipidemia Hypothyroidism Kidney stones Osteoarthritis Osteoporosis Parkinson disease Surgical History: Surgical History (Last Updated 10/07/21 @ 20:53 by Zahra Zamorano PA-C) History of appendectomy Onset Date: 1985 History of arthroplasty of right knee History of bilateral cataract extraction History of cardiac catheterization History of cholecystectomy Onset Date: 02/2006 History of colectomy Onset Date: 03/28/17 History of colostomy History of coronary artery stent placement History of cystoscopy History of partial nephrectomy Onset Date: 1955 History of right breast biopsy Status post trigger finger release Family History: Family History (Last Reviewed 10/07/21 @ 20:53 by Zahra Zamorano PA-C) Mother Cerebrovascular accident Unknown No problems noted. Son Diabetes mellitus Sibling Family history of kidney disease Unknown Family history of kidney disease Other Family history of allergic disorder Family history of malignant neoplasm Hypertension - Social History Social History: Social History (Last Updated 10/07/21 @ 20:54 by Zahra Zamorano PA-C) Alcohol Use: Alcohol intake: never Substance Use: Substance use: never Substance use type: does not use Others: Spiritual care concerns: No Smoking Status: Smoking status: Former smoker Approximate Smoking End Date: 1987 Smoking Pack-years: Smoking packs per day: 0.2 Smoking cigarettes per day: 4.0 Years smoked: 5 Smoking pack-years: 1.00 Meds Home Medications Medication Instructions Recorded Confirmed Type carbidopa 25 mg-levodopa 100 mg 1 tablet PO TID 02/04/21 10/07/21 History tablet citalopram 40 mg tablet 40 mg PO DAILY 02/04/21 10/07/21 History levothyroxine 50 mcg tablet 50 mcg PO DAILY 02/04/21 10/07/21 History (Synthroid) simvastatin 10 mg tablet 10 mg PO HS 02/04/21 10/07/21 History acetaminophen 325 mg tablet 650 mg PO PRN PRN Pain 05/31/21 10/07/21 History artificial tears solution eye drops 1 drp ophthalmic (eye) PRN PRN Dry 05/31/21 10/07/21 History Eyes atenolol 25 mg tablet 25 mg PO DAILY 05/31/21 10/07/21 History potassium chloride 20 mEq 20 meq PO 3XW 05/31/21 10/07/21 History tablet,extended release(part/cryst) (Klor-Con M) aspirin 81 mg tablet,delayed 81 mg PO DAILY #30 tabs 06/03/21 10/07/21 Rx release (Adult Aspirin Regimen) Allergies Allergy/AdvReac Type Severity Reaction Status Date / Time lanolin Allergy Severe ITCHING Verified 10/07/21 19:06 morphine Allergy Mild Itching Verified 10/07/21 19:06 meperidine Allergy
[2021-10-08 19:42] VITALS: BP 146/41; PULSE 97; RESP 18; TEMP 35.7; O2SAT 97
[2021-10-09 03:43] VITALS: BP 147/49; PULSE 68; RESP 17; TEMP 36; O2SAT 98
[2021-10-09] MEDS: LEVOTHYROXINE SODIUM 50 MCG TABLET PO (05:33)
[2021-10-09 08:41] VITALS: O2SAT 93
[2021-10-09 08:44] VITALS: PULSE 74
[2021-10-09] MEDS: CARBIDOPA/LEVODOPA 25/100 MG TABLET 1 TABLET PO (08:44)
[2021-10-09] MEDS: CITALOPRAM HYDROBROMIDE 20 MG TABLET 40 MG PO (08:44)
[2021-10-09] MEDS: atenoloL 25 MG TABLET PO (08:44)
[2021-10-09] MEDS: ACETAMINOPHEN 325 MG TABLET 650 MG PO (08:50)
--- NOTE | 2021-10-09 10:09 | PM.DS ---
DS: Admitting Diagnosis Discharge Date 10/09/21 Admitting Diagnosis macrocytic anemia Chronic hyponatremia DS: Discharge Diagnosis Discharge Diagnosis (1) Macrocytic anemia: Code(s): D53.9 - Nutritional anemia, unspecified Status: Acute Assessment and Plan: MCV has gradually increased over the past 1 year with a gradual fall and hemoglobin in white blood cell count. Lab work from 10/07/2021 was reviewed including iron studies and B12 and folate. Concerns are now for possible myelodysplastic disorder Consulted Dr. Choi for possible bone marrow biopsy Transfuse packed red blood cells to obtain a appropriate hemoglobin Monitor serum electrolytes, CBC, hemoglobin/hematocrit q.8 hours. If hemoglobin drops below 7 transfuse packed red blood cells Monitor for bloody bowel movements,chest pain,SOB or dizziness/lightheadedness Diet: NPO DVT Px: SCDs Avoid anti-coagulations (2) Chronic hyponatremia: Code(s): E87.1 - Hypo-osmolality and hyponatremia Status: Acute Assessment and Plan: Baseline sodium ranges between 131 and 136. Patient was hydrated overnight with improvement of serum sodium. d/c iv fluids (3) Hypothyroidism: Qualifiers: Hypothyroidism type: unspecified Qualified Code(s): E03.9 - Hypothyroidism, unspecified Code(s): E03.9 - Hypothyroidism, unspecified Status: Chronic Assessment and Plan: Continue levothyroxine and check TSH. (4) Parkinson disease: Code(s): G20 - Parkinson's disease Status: Chronic Assessment and Plan: Continue carbidopa-levodopa. Initiate fall precautions. Speech to repeated perform a modified barium swallow (5) Dementia in Parkinson's disease: Code(s): G20 - Parkinson's disease; F02.80 - Dementia in other diseases classified elsewhere without behavioral disturbance Status: Acute Assessment and Plan: Her friend and caretakers going to be staying with her during her hospitalization. (6) Congestive heart failure: Code(s): I50.9 - Heart failure, unspecified Status: Acute Assessment and Plan: She appears clinically compensated. Monitor fluid volume status Patient had an echocardiogram performed in May of 2021 which revealed an LVEF of 70% with normal diastolic function. (7) Depression with anxiety: Code(s): F41.8 - Other specified anxiety disorders Status: Acute Assessment and Plan: Continue citalopram. DS: Summary Hospital Course Reason for hospitalization: macrocytic anemia, patient requiring blood product transfusion Hospital Course: patient is an 86-year-old female with a past medical history of dementia, Parkinson's, CAD, CHF, hypertension, diverticulitis, hypothyroidism and colon cancer status post colectomy and chemoradiation therapy who presented to [facility] at the request of Dr. Choi due to lab values obtained prior to his office visit with the patient. Patient was found be acutely anemic with a hemoglobin of 5.7. Patient was notified to come to the emergency department. Upon arrival to the emergency department the patient could not provide a good history therefore her [id number] Sheryl provided additional information to the admitting provider. The patient reportedly was feeling well for a while but eventually began to feel fatigue and weak for the last couple of months. Patient was vague with her complaints include decreased energy, increased in fatigue, poor appetite with weight loss. Patient also reported intermittent chest pain that has been ongoing for quite some time. However she had a cardiac catheterization done last spring which ruled out cardio etiology. Patient had further workup in the emergency department which revealed a WBC of 2.0, hemoglobin 5.9, hematocrit 17.6, platelet 153, sodium 129-patient's baseline, potassium 4.4, chloride 99, BUN 17 and creatinine 0.9. No
== END 2021-10-09 10:34 | disposition home or self-care (01) ==
LOC: ANHED 17:40 → ANH2MED 21:49
PROVIDERS: Physician Assistant; Admitting Provider Internal Medicine; Emergency Provider Emergency Medicine; PCP Nurse Practitioner Adult Health; Visit Provider Nurse Practitioner Family
DX: D53.9 Nutritional anemia, unspecified (principal); E87.1 Hypo-osmolality and hyponatremia; E03.9 Hypothyroidism, unspecified; G20 Parkinson's disease; F02.80 Dementia in other diseases classified elsewhere, unspecified severity, without behavioral disturbance, psychotic disturbance, mood disturbance, and anxiety; I50.9 Heart failure, unspecified; F41.8 Other specified anxiety disorders; D61.818 Other pancytopenia; I25.10 Atherosclerotic heart disease of native coronary artery without angina pectoris; I11.0 Hypertensive heart disease with heart failure; Z93.3 Colostomy status; Z85.038 Personal history of other malignant neoplasm of large intestine; Z92.21 Personal history of antineoplastic chemotherapy; M81.0 Age-related osteoporosis without current pathological fracture; Z87.891 Personal history of nicotine dependence; Z79.82 Long term (current) use of aspirin; Z90.49 Acquired absence of other specified parts of digestive tract; Z92.3 Personal history of irradiation; Z90.5 Acquired absence of kidney
CPT/HCPCS: 36415; 36430; 74177; 80048; 80053; 82378; 82607; 82728; 82746; 83540; 83550; 83735; 84443; 85025; 85027; 85055; 85610; 85730; 86850; 86900; 86901; 86920; 96360; 96361; 99285; A9270; G0378; J7030; J7050; P9016; Q9967

== ENCOUNTER 2021-10-12 09:20 | Outpatient (CLI) | payer MEDICARE, SELFPAY ==
[2021-10-12 09:50] LABS: Basophils Percent Auto 0.5 % (0.2-1.2); Eosinophils Absolute Auto 0.1 K/mm3 (0-0.3); Eosinophils Percent Auto 4.3 % (0-4.4); Hematocrit 28.4 % (37.0-47.0); Hemoglobin 9.6 g/dL (12.0-15.0); Immature Granulocyte Absolute 0.04 K/mm3 (0.00-0.031); Immature Granulocyte Percent A 2.2 % (0-0.5); Lymphocytes Absolute Auto 0.51 K/mm3 (0.9-3.2); Lymphocytes Percent Auto 27.7 % (18.3-44.2); Mean Corpuscular HGB Conc 33.8 g/dl (32-36); Mean Corpuscular Hemoglobin 35.2 pg (26-34); Mean Platelet Volume 11.5 fl (7.4-10.4); Monocytes Absolute Auto 0.2 K/mm3 (0.1-0.6); Monocytes Percent Auto 10.9 % (2.6-8.5); Neutrophils Percent Auto 54.4 % (45.5-73.1); Platelet Count Result 143 k/mm3 (150-375); Red Blood Count 2.73 M/mm3 (4.2-5.4); Red Cell Distribution Width 21.2 % (11.5-14.5)
[2021-10-12 10:50] LABS: White Blood Count 1.8 K/mm3 (4.5-10.0)
== END 2021-10-12 09:21 | disposition home or self-care (01) ==
PROVIDERS: PCP Nurse Practitioner Adult Health; Visit Provider Nurse Practitioner Family
DX: D53.9 Nutritional anemia, unspecified (principal)
CPT/HCPCS: 36415; 85025

== ENCOUNTER 2021-10-20 11:26 | Emergency (ER) | payer MEDICARE, SELFPAY ==
[2021-10-20] VITALS (31 sets, daily range): BP systolic 97–125; BP diastolic 42–57; PULSE 64–79; RESP 8–15; TEMP 36.6; O2SAT 96–100
--- NOTE | ~2021-10-20 | XR_ITS ---
EXAMINATION: XR chest 2V DATE: 10/20/2021 12:21 INDICATION: Shortness of breath. Chest pain radiating to the back. TECHNIQUE: frontal and lateral views of the chest were obtained. COMPARISON: Chest radiograph and CT dated 05/31/2021 FINDINGS: Mild eventration along the right hemidiaphragm. Linear costochondral calcifications project over the left lower lung zone. No other airspace opacities, pulmonary edema, pleural effusion or pneumothorax. The cardiomediastinal silhouette is normal. Cholecystectomy clips in the upper abdomen. Thoracic spo ndylosis, moderate at T10-T11 and severe T11-T12, otherwise mild. IMPRESSION: 1. No acute cardiopulmonary disease. Reviewed, dictated and finalized at location B.
--- NOTE | ~2021-10-20 | CT_ITS ---
EXAMINATION: CTA chest PE protocol DATE: 10/20/2021 14:30 INDICATION: Chest pain. Shortness of breath. Elevated d-dimer. TECHNIQUE: Computed tomography (CT) pulmonary angiogram of the chest was performed with 100 mL Omnipa que-350 intravenous contrast. Additional 3D reconstructions utilizing coronal maximum intensity proje ction (MIP) were performed. Automated exposure control and iterative reconstruction technique were em ployed. The dose-length product was 325.36 mGy-cm. COMPARISON: Chest CT dated 05/31/[address] abdomen and pelvis dated 12/06/2018 FINDINGS: Excellent contrast opacification of the pulmonary arteries. There is mild streak artifact from dense contrast in the superior vena cava and right atrium. Minimal scattered respiratory motion artifact wh ich does not significantly limit evaluation. No pulmonary embolism. Minimal biapical pleural-parenchy mal scarring. Mild atelectasis left lung base. No pneumonia, pulmonary edema, pleural effusion or pne umothorax. Heart size is normal. No pericardial effusion. Small sliding-type hiatal hernia. Thoracic aorta is normal in caliber with no dissection. 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 No pathologically enlarged thoracic lymphadenopathy. Mild dextro scoliosis. Severe spondylosis at the lower cervical and lower thoracic spine. Several unchanged small sclerotic bone islands. Cholecystectomy clips the gallbladder fossa. IMPRESSION: 1. No pulmonary embolism or other acute cardiopulmonary disease. Reviewed, dictated and finalized at location B.
--- NOTE | 2021-10-20 11:37 | ECG_ITS ---
Measurements Intervals [place] Rate: 79 P: 15 SD: 193 QRS: 32 QRSD: 104 T: 59 QT: 381 QTc: 438 Interpretive Statements SINUS RHYTHM VENTRICULAR PREMATURE COMPLEX EARLY PRECORDIAL R/S TRANSITION VOLTAGE CRITERIA FOR LVH CONSIDER INFERIOR INFARCT, AGE INDETERMINATE ABNORMAL ECG Electronically Signed On 10-20-2021 13:00:07 CDT by Fernando Phillips D.O.
[2021-10-20 12:00] LABS: Eosinophils Percent Auto 1.1 % (0-4.4); Hematocrit 26.2 % (37.0-47.0); Hemoglobin 9.1 g/dL (12.0-15.0); Immature Granulocyte Absolute 0.03 K/mm3 (0.00-0.031); Immature Granulocyte Percent A 1.7 % (0-0.5); Lymphocytes Absolute Auto 0.48 K/mm3 (0.9-3.2); Lymphocytes Percent Auto 26.5 % (18.3-44.2); Mean Corpuscular HGB Conc 34.7 g/dl (32-36); Mean Corpuscular Hemoglobin 35.3 pg (26-34); Mean Corpuscular Volume 101.6 fl (80-100); Mean Platelet Volume 11.2 fl (7.4-10.4); Monocytes Absolute Auto 0.2 K/mm3 (0.1-0.6); Monocytes Percent Auto 12.2 % (2.6-8.5); Neutrophils Absolute Auto 1.1 K/mm3 (1.3-6.7); Neutrophils Percent Auto 58.5 % (45.5-73.1); Platelet Count Result 144 k/mm3 (150-375); Red Blood Count 2.58 M/mm3 (4.2-5.4); Red Cell Distribution Width 21.3 % (11.5-14.5)
[2021-10-20 12:09] LABS: Alanine Aminotransferase 10 U/L (6-35); Albumin Level 4.1 g/dL (3.5-5.1); Alkaline Phosphatase 65 U/L (38-126); Anion Gap 2 mmol/L (8-16); Aspartate Amino Transferase 19 U/L (14-36); Bilirubin,Total 0.6 mg/dL (0.2-1.3); Blood Urea Nitrogen 12 mg/dL (7-17); Calcium 9.1 mg/dL (8.4-10.2); Carbon Dioxide 28 mmol/L (22-30); Chloride 101 mmol/L (98-107); Estimated Glomerular Filt Rate > 60; Glucose 151 mg/dL (65-110); Potassium 3.8 mmol/L (3.4-5.0); Sodium 131 mmol/L (137-145)
[2021-10-20 12:28] LABS: White Blood Count 1.8 K/mm3 (4.5-10.0)
[2021-10-20 12:29] LABS: Anisocytosis 1+ (NORMAL); Platelet Estimate Adequate (Adequate)
--- NOTE | 2021-10-20 12:53 | ED.SOB ---
HPI - SOB/Dyspnea General Chief Complaint: Shortness of Breath/Dyspnea Stated Complaint: shortness of breath that began this morning Time Seen by Provider: 10/20/21 12:04 Source: patient, family, RN notes reviewed and old records reviewed Mode of arrival: ambulatory Limitations: no limitations History of Present Illness HPI Narrative: This is an 86 year old female with history of leukopenia, anemia, and hypertension who presents for evaluation of shortness of breath. Patient's family reports patient started complaining of shortness of breath at 1030. She states patient was talking alot and she did not visibly appear short of breath. Patient is unsure if she is short of breath now. She also complained of left sternal chest pain that radiates to her back. She reports her pain is worse with taking a deep breath. Her family also reports patient was complaining of dizziness when she getting up today. Patient denies cough, fever, chills, leg swelling, nausea or vomiting. Her family states patient had shortness of breath several weeks ago when she was admitted for transfusion. Onset (ago): hour(s) Timing: improved Exacerbating factors: talking Relieving factors: nothing Associated symptoms: pain with inspiration Related Data Home Medications Medication Instructions Recorded Confirmed carbidopa 25 mg-levodopa 100 mg 1 tablet PO TID 02/04/21 10/07/21 tablet citalopram 40 mg tablet 40 mg PO DAILY 02/04/21 10/07/21 levothyroxine 50 mcg tablet 50 mcg PO DAILY 02/04/21 10/07/21 (Synthroid) simvastatin 10 mg tablet 10 mg PO HS 02/04/21 10/07/21 acetaminophen 325 mg tablet 650 mg PO PRN PRN Pain 05/31/21 10/07/21 artificial tears solution eye drops 1 drp ophthalmic (eye) PRN PRN Dry 05/31/21 10/07/21 Eyes atenolol 25 mg tablet 25 mg PO DAILY 05/31/21 10/07/21 potassium chloride 20 mEq 20 meq PO 3XW 05/31/21 10/07/21 tablet,extended release(part/cryst) (Klor-Con M) Allergies Allergy/AdvReac Type Severity Reaction Status Date / Time lanolin Allergy Severe ITCHING Verified 10/07/21 19:06 morphine Allergy Mild Itching Verified 10/07/21 19:06 meperidine Allergy Unknown Itching Verified 10/07/21 19:06 sulfur dioxide Allergy Unknown Unknown Verified 10/07/21 19:06 tramadol Allergy Unknown Dizziness Verified 10/07/21 19:06 Sulfa (Sulfonamide AdvReac Mild Nausea and Verified 10/07/21 19:06 Antibiotics) Vomiting Review of Systems Review of Systems: All systems reviewed & are unremarkable except as noted in HPI and below Constitutional: Constitutional: Denies chills, Denies fatigue and Denies fever(s) ENT: Denies dizziness and Denies nasal congestion Cardiovascular: Cardiovascular: Reports chest pain, Denies rapid heart rate and Denies slow heart rate Respiratory: Respiratory: Denies chest congestion, Denies cough and Reports dyspnea Gastrointestinal: Gastrointestinal: Denies abdominal pain, Denies nausea and Denies vomiting Musculoskeletal: Musculoskeletal: Reports back pain Neurologic: Denies focal weakness PMFSH Past Medical History Medical History Chronic hyponatremia Colon cancer Status post colectomy and chemo radiotherapy. Congestive heart failure Coronary artery disease Dementia in Parkinson's disease Depression with anxiety Diverticulitis Gastroesophageal reflux disease Hyperlipidemia Hypothyroidism Kidney stones Osteoarthritis Osteoporosis Parkinson disease Surgical History Surgical History History of appendectomy (1985) History of arthroplasty of right knee History of bilateral cataract extraction History of cardiac catheterization History of cholecystectomy (02/2006) History of colectomy (03/28/17) History of colostomy History of coronary artery stent placement History of cystoscopy History of partial nephrectomy (1955) History of right breast biopsy Status post trigger fi
[2021-10-20 12:58] LABS: NT Pro B Type Natriuretic Pept 255 pg/mL (5-100); Troponin I < 0.012 ng/mL (0.000-0.034)
[2021-10-20 13:09] LABS: Lipase 75 U/L (23-300)
[2021-10-20 13:30] LABS: INR 1.1; Partial Thromboplastin Time 31.9 SECONDS (22.3-36.8)
[2021-10-20 13:55] LABS: D Dimer 0.71 ug/mL (<0.48)
[2021-10-20 15:55] LABS: Troponin I 0.035 ng/mL (0.000-0.034)
[2021-10-20 16:46] LABS: SARS-CoV-2 RNA PCR Negative
== END 2021-10-20 16:59 | disposition home or self-care (01) ==
PROVIDERS: Emergency Medicine; Emergency Provider General Practice; PCP Nurse Practitioner Adult Health
DX: R06.00 Dyspnea, unspecified (principal); D72.819 Decreased white blood cell count, unspecified; R07.89 Other chest pain; I50.9 Heart failure, unspecified; G20 Parkinson's disease; F02.80 Dementia in other diseases classified elsewhere, unspecified severity, without behavioral disturbance, psychotic disturbance, mood disturbance, and anxiety; E03.9 Hypothyroidism, unspecified; E78.5 Hyperlipidemia, unspecified; I25.10 Atherosclerotic heart disease of native coronary artery without angina pectoris; Z85.038 Personal history of other malignant neoplasm of large intestine; Z87.891 Personal history of nicotine dependence; Z20.822 Contact with and (suspected) exposure to COVID-19
CPT/HCPCS: 36415; 71046; 71275; 80053; 83690; 83880; 84484; 85025; 85380; 85610; 85730; 93005; 99284; C9803; Q9967; U0003; U0005

== ENCOUNTER 2021-11-17 12:59 | Emergency (ER) | payer MEDICARE, SELFPAY ==
--- NOTE | 2021-11-17 13:11 | ED.GENADULT ---
HPI - General Adult General Chief complaint: Unspecified Stated complaint: not feeling well Time Seen by Provider: 11/17/21 13:11 Source: patient and family (healthcare associate) Mode of arrival: ambulatory Limitations: no limitations History of Present Illness HPI narrative: Ms. Flores is a 86-year-old female patient presenting to the clinic today with complaints of shortness of breath on exertion, dizziness, and recent fall on Monday. Denies any injury from fall, hitting her head, or LOC. Patient is very pale. Caregiver reports she had a blood transfusion last month. States her symptoms are graually getting worse so they decided to come in for evaluation today. VS stable currently. B/P 112/51, Spo02 100, HR 78. She denies any chest pain or gi bleeding. home health aide caregiver noted that she did have some bleeding around her stoma however this has stopped. Related Data Home Medications Medication Instructions Recorded Confirmed carbidopa 25 mg-levodopa 100 mg 1 tablet PO TID 02/04/21 10/07/21 tablet citalopram 40 mg tablet 40 mg PO DAILY 02/04/21 10/07/21 levothyroxine 50 mcg tablet 50 mcg PO DAILY 02/04/21 10/07/21 (Synthroid) simvastatin 10 mg tablet 10 mg PO HS 02/04/21 10/07/21 acetaminophen 325 mg tablet 650 mg PO PRN PRN Pain 05/31/21 10/07/21 artificial tears solution eye drops 1 drp ophthalmic (eye) PRN PRN Dry 05/31/21 10/07/21 Eyes atenolol 25 mg tablet 25 mg PO DAILY 05/31/21 10/07/21 potassium chloride 20 mEq 20 meq PO 3XW 05/31/21 10/07/21 tablet,extended release(part/cryst) (Klor-Con M) nitroglycerin 0.4 mg sublingual 0.4 mg DIRECTED 11/17/21 11/17/21 tablet Allergies Allergy/AdvReac Type Severity Reaction Status Date / Time lanolin Allergy Severe ITCHING Verified 11/17/21 14:16 morphine Allergy Mild Itching Verified 11/17/21 14:16 meperidine Allergy Unknown Itching Verified 11/17/21 14:16 sulfur dioxide Allergy Unknown Unknown Verified 11/17/21 14:16 tramadol Allergy Unknown Dizziness Verified 11/17/21 14:16 Sulfa (Sulfonamide AdvReac Mild Nausea and Verified 11/17/21 14:16 Antibiotics) Vomiting Review of Systems Review of Systems: Pertinent positives per HPI. Patient denies any fever, chills, rash, headache, visual changes, cough, runny nose, sore throat, chest pain, palpitations, nausea, vomiting, diarrhea, constipation, abdominal pain, or any urinary issues. [facility] Past Medical History Medical History Chronic hyponatremia Colon cancer Status post colectomy and chemo radiotherapy. Congestive heart failure Coronary artery disease Dementia in Parkinson's disease Depression with anxiety Diverticulitis Gastroesophageal reflux disease Hyperlipidemia Hypothyroidism Kidney stones Osteoarthritis Osteoporosis Parkinson disease Surgical History Surgical History History of appendectomy (1985) History of arthroplasty of right knee History of bilateral cataract extraction History of cardiac catheterization History of cholecystectomy (02/2006) History of colectomy (03/28/17) History of colostomy History of coronary artery stent placement History of cystoscopy History of partial nephrectomy (1955) History of right breast biopsy Status post trigger finger release Family History Family History Mother Cerebrovascular accident Unknown No problems noted. Son Diabetes mellitus Sibling Family history of kidney disease Unknown Family history of kidney disease Other Family history of allergic disorder Family history of malignant neoplasm Hypertension Social History Social History Social History: Healthcare power of [employer] clerk: Sheryl Zacarias, friend and stone sandblaster. Code status: Do not resuscitate. Smoking packs per day: 0.2 Smoking cigare
[2021-11-17 13:22] VITALS: BP 112/51; PULSE 78; RESP 18; TEMP 36.5; O2SAT 100
== END 2021-11-17 13:36 | disposition short-term general hospital (02) ==
PROVIDERS: Emergency Provider Nurse Practitioner Family; PCP Nurse Practitioner Adult Health
DX: R06.09 Other forms of dyspnea (principal); R42 Dizziness and giddiness; D64.9 Anemia, unspecified; Z87.891 Personal history of nicotine dependence; K21.9 Gastro-esophageal reflux disease without esophagitis; E78.5 Hyperlipidemia, unspecified; E03.9 Hypothyroidism, unspecified; M19.90 Unspecified osteoarthritis, unspecified site; M81.0 Age-related osteoporosis without current pathological fracture; G20 Parkinson's disease; F02.80 Dementia in other diseases classified elsewhere, unspecified severity, without behavioral disturbance, psychotic disturbance, mood disturbance, and anxiety; I25.10 Atherosclerotic heart disease of native coronary artery without angina pectoris; I50.9 Heart failure, unspecified; Z85.038 Personal history of other malignant neoplasm of large intestine; Z98.42 Cataract extraction status, left eye; Z98.41 Cataract extraction status, right eye; Z95.5 Presence of coronary angioplasty implant and graft; Z90.5 Acquired absence of kidney; F41.8 Other specified anxiety disorders; E87.1 Hypo-osmolality and hyponatremia
CPT/HCPCS: 99212; G0463

== ENCOUNTER 2021-11-17 13:57 | Inpatient (IN) | payer MEDICARE, SELFPAY ==
[2021-11-17] VITALS (23 sets, daily range): BP systolic 106–167; BP diastolic 41–62; PULSE 72–86; RESP 15–26; TEMP 36–36.6; O2SAT 76–100
--- NOTE | ~2021-11-17 | BM_ITS ---
EXAMINATION: CCL bone marrow asp w bx diag DATE: 11/19/2021 08:58 INDICATION: Anemia. TECHNIQUE: A time-out was performed to verify the patient's name, date of , and procedure to b e performed. The procedure including the risks, benefits, and alternatives was discussed with the pat ient and her power of staff attorney. Risks discussed included bleeding and infection. The power of attorne y understood the risks and agreed to proceed. The skin overlying the left ilium was prepped and drap ed in usual sterile fashion. Anesthetic was administered with 1% lidocaine subcutaneously. 50 mcg fe ntanyl IV was given for mild sedation. An 11 gauge needle was inserted into the ilium with fluorosco pic guidance. Bone marrow was aspirated. An 8 gauge needle was then inserted into the ilium with fluo roscopic guidance. A core bone marrow biopsy was obtained. There were no immediate complications. Flu oroscopy exposure time was 0.0 minutes. The total number of images was 9. FINDINGS: Real-time fluoroscopy demonstrates a marker overlying the left posterior superior iliac spi ne. IMPRESSION: 1. Fluoro-guided bone marrow aspiration. 2. Fluoro-guided bone marrow core biopsy. Reviewed, dictated and finalized at location A.
--- NOTE | ~2021-11-17 | XR_ITS ---
EXAMINATION: XR chest 1V portable Exam Date/Time: 11/17/2021 15:13 CDT HISTORY: sob; hx of colon CA, CHF, HTN Comparison: 10/20/2021. RESULT: Lines, tubes, and devices: None. Lungs and pleura: Left basilar scar/atelectasis. Right costophrenic angle blunting with increased kim bsegmental right basilar opacity. Mild diffuse reticular opacities. Cardiomediastinal silhouette: Stable. Other: No acute osseous or upper abdominal finding. IMPRESSION: Mild interstitial edema. Small right pleural effusion. Bibasilar atelectasis/scar. Reviewed, dictated and finalized at location K. IMPRESSION: Mild interstitial edema. Small right pleural effusion. Bibasilar atelectasis/sc ar.
--- NOTE | 2021-11-17 14:12 | ECG_ITS ---
Measurements Intervals [place] Rate: 72 P: -9 MT: 169 QRS: 45 QRSD: 81 T: 14 QT: 386 QTc: 425 Interpretive Statements SINUS RHYTHM NONSPECIFIC T-WAVE ABNORMALITY COMPARED TO ECG 10/20/2021 12:03:52 T-WAVE ABNORMALITY NOW PRESENT Electronically Signed On 11-17-2021 18:37:33 CDT by Le Noel M.D.
[2021-11-17 14:33] LABS: Immature Platelet Fraction Pct 20.5 % (0.9-11.2); Mean Corpuscular HGB Conc 32.6 g/dl (32-36); Mean Corpuscular Hemoglobin 33.9 pg (26-34); Mean Platelet Volume 12.9 fl (7.4-10.4); Platelet Count Result 134 k/mm3 (150-375); Red Blood Count 1.24 M/mm3 (4.2-5.4); Red Cell Distribution Width 25.6 % (11.5-14.5); White Blood Count 3.4 K/mm3 (4.5-10.0)
[2021-11-17 14:43] LABS: Alanine Aminotransferase 129 U/L (6-35); Albumin Level 3.8 g/dL (3.5-5.1); Alkaline Phosphatase 114 U/L (38-126); Anion Gap 7 mmol/L (8-16); Aspartate Amino Transferase 86 U/L (14-36); Blood Urea Nitrogen 27 mg/dL (7-17); Calcium 8.8 mg/dL (8.4-10.2); Carbon Dioxide 25 mmol/L (22-30); Chloride 94 mmol/L (98-107); Estimated CRCL calculation 37 ml/min; Estimated Glomerular Filt Rate > 60; Glucose 123 mg/dL (65-110); Sodium 126 mmol/L (137-145)
[2021-11-17 14:57] LABS: Hemoglobin 4.2 g/dL (12.0-15.0)
[2021-11-17 14:58] LABS: Hematocrit 12.9 % (37.0-47.0)
[2021-11-17 15:02] LABS: Band Neutrophils Percent 8 % (0-6); Eosinophils Absolute Manual 0.03 K/mm3 (0.02-0.5); Eosinophils Percent Manual 1 % (0-4); Lymphocytes Absolute Manual 0.88 K/mm3 (1.1-4.5); Monocytes Absolute Manual 0.71 K/mm3 (0.1-0.90); Monocytes Percent Manual 21 % (3-9); Neutrophils Absolute Manual 1.76 K/mm3 (1.7-7.2); Neutrophils Percent Manual 44 % (46-73); Nucleated Red Blood Cells 1 %; Total Cells Counted 100
[2021-11-17 15:03] LABS: Anisocytosis 3+ (NORMAL); Hypochromasia 1+ (NORMAL); Platelet Estimate Decreased (Adequate)
--- NOTE | 2021-11-17 15:06 | ED.SOB ---
HPI - SOB/Dyspnea General Chief Complaint: Shortness of Breath/Dyspnea Stated Complaint: sob Time Seen by Provider: 11/17/21 14:36 History of Present Illness HPI Narrative: sob weakness tired no loc/trauma/f/uri/n/v/d/abd pain/urine olamide lilly was here 10/11 doc wanted to get bone marrow biopsy due to ? source for same with anemia but dind't want to stay thru weekend holiday to get and never has gottem outpt yet no cp Related Data Home Medications Medication Instructions Recorded Confirmed carbidopa 25 mg-levodopa 100 mg 1 tablet PO TID 02/04/21 11/17/21 tablet citalopram 40 mg tablet 40 mg PO DAILY 02/04/21 11/17/21 levothyroxine 50 mcg tablet 50 mcg PO DAILY 02/04/21 11/17/21 (Synthroid) simvastatin 10 mg tablet 10 mg PO HS 02/04/21 11/17/21 acetaminophen 325 mg tablet 650 mg PO PRN 05/31/21 11/17/21 artificial tears solution eye drops 1 drp ophthalmic (eye) PRN PRN Dry 05/31/21 11/17/21 Eyes atenolol 25 mg tablet 25 mg PO DAILY 05/31/21 11/17/21 potassium chloride 20 mEq 20 meq PO DAILY 05/31/21 10/07/21 tablet,extended release(part/cryst) (Klor-Con M) nitroglycerin 0.4 mg sublingual 0.4 mg DIRECTED 11/17/21 11/17/21 tablet Allergies Allergy/AdvReac Type Severity Reaction Status Date / Time lanolin Allergy Severe ITCHING Verified 11/17/21 14:16 morphine Allergy Mild Itching Verified 11/17/21 14:16 meperidine Allergy Unknown Itching Verified 11/17/21 14:16 sulfur dioxide Allergy Unknown Unknown Verified 11/17/21 14:16 tramadol Allergy Unknown Dizziness Verified 11/17/21 14:16 Sulfa (Sulfonamide AdvReac Mild Nausea and Verified 11/17/21 14:16 Antibiotics) Vomiting Review of Systems Constitutional: Comments: CONSTITUTIONAL: Denies fever, chills, or sweats. EYES: Denies visual changes, redness, or discharge. ENT: Denies rhinorrhea, congestion, sore throat, or otalgia. CARDIOVASCULAR: Denies chest pain, palpitations, or edema. RESPIRATORY: Denies cough has dyspnea. weakness and tired GASTROINTESTINAL: Denies abdominal pain, nausea, vomiting, or diarrhea. GENITOURINARY: Denies dysuria or hematuria. SKIN: Denies rash or itching. MUSCULOSKELETAL: Denies back pain, joint pain, or myalgia. NEUROLOGIC: Denies headache, numbness, PSYCHIATRIC: Denies anxiety or depression. [facility] Past Medical History Medical History Chronic hyponatremia Colon cancer Status post colectomy and chemo radiotherapy. Congestive heart failure Coronary artery disease Dementia in Parkinson's disease Depression with anxiety Diverticulitis Gastroesophageal reflux disease Hyperlipidemia Hypothyroidism Kidney stones Osteoarthritis Osteoporosis Parkinson disease Surgical History Surgical History History of appendectomy (1985) History of arthroplasty of right knee History of bilateral cataract extraction History of cardiac catheterization History of cholecystectomy (02/2006) History of colectomy (03/28/17) History of colostomy History of coronary artery stent placement History of cystoscopy History of partial nephrectomy (1955) History of right breast biopsy Status post trigger finger release Family History Family History Mother Cerebrovascular accident Unknown No problems noted. Son Diabetes mellitus Sibling Family history of kidney disease Unknown Family history of kidney disease Other Family history of allergic disorder Family history of malignant neoplasm Hypertension Social History Social History Social History: Healthcare power of real estate attorney: Sheryl Zacarias, friend and creative developer. Code status: Do not resuscitate. Smoking packs per day: 0.2 Smoking cigarettes per day: 4.0 Years smoked: 5 Smoking pack-years: 1.00 Smoking status: Former smoker
[2021-11-17 15:09] LABS: INR 1.3; Prothrombin Time 15.4 Seconds (11.1-14.7)
[2021-11-17 15:11] LABS: NT Pro B Type Natriuretic Pept 7950 pg/mL (5-100); Troponin I 0.123 ng/mL (0.000-0.034)
[2021-11-17 15:52] LABS: SARS-CoV-2 RNA PCR Negative
[2021-11-17] MEDS: CARBIDOPA/LEVODOPA 25/100 MG TABLET 1 TABLET PO ×2 (16:48→21:18)
[2021-11-17] MEDS: TUBING, BLOOD PLUM PUMP TUBING 1 EACH XX (17:10)
[2021-11-17] MEDS: SODIUM CHLORIDE 0.9% IV 250 ML 30 ML IV CONT (17:10)
--- NOTE | 2021-11-17 17:10 | PC.NURSE ---
Blood products initiated at 75ml/hour.
--- NOTE | 2021-11-17 17:27 | PC.NURSE ---
Blood product infusion rate increased to 150ml/hr. Pt tolerating well. No evidence of reaction to blood products.
--- NOTE | 2021-11-17 18:12 | PC.NURSE ---
Report given to EMILIA Lopez in IMU
--- NOTE | 2021-11-17 18:36 | ADMGEN ---
This patient, Bonnie Granados, was admitted to IMU Room 211-01 at 1836. Patient/family oriented to hospital policies and general routines including ID bracelet, bed and alarms, visiting hours, pain management, procedures, bathroom and other care routines, personal items, smoking policy, room service/diet, and visiting hours. Information on how to activate the Rapid Response Team has been discussed. Patient/Family are encouraged to report perceived risks to care and to ask questions if they do not understand what they are told or what they should do.
--- NOTE | 2021-11-17 22:12 | PM.IMHP ---
H&P: HPI History of Present Illness Date/Time: 11/17/212129 Chief Complaint: Shortness of breath Narrative: this is an 86-year-old female patient who came in with complaints of weakness and fatigue. The patient was recently discharged from here on 10/09/2021 with a similar episode she was seen by Dr. Choi at the time and there was some concern about some myelodysplastic anemia and there was a plan to do bone marrow aspiration and biopsy outpatient. The patient did not follow up or get a bone marrow biopsy but is willing to do so now. Her friend is at the bedside answering questions for her and her friend is also the durable power banking attorney for healthcare. Today her H&H is 4.2 and 12.9. Patient has gotten 2 units of packed red blood cells so far. She also has a history of Parkinson's and was given her carbidopa levodopa in the emergency room. The patient has become very weak. She does have a history of macrocytic anemia with MCV of 104. Troponin 0.123 she has a history of having elevated troponins in the past. Patient initially was admitted to inpatient status but changed to observation on the date of service of 11/17/2021. Review of Systems Review of Systems: See HPI All systems reviewed & are unremarkable except as noted in HPI and below Constitutional: Constitutional: Reports as per HPI and Reports no additional constitutional complaints Eyes: Eyes: Reports as per HPI and Reports no additional eye complaints ENT: Reports system reviewed and no additional complaints, except as documented and Reports Normal hearing present Cardiovascular: Cardiovascular: Reports no additional cardiovascular complaints Respiratory: Respiratory: Reports no additional respiratory complaints and Reports no additional respiratory complaints Gastrointestinal: Gastrointestinal: Reports as per HPI and Reports no additional gastrointestinal complaints Musculoskeletal: Musculoskeletal: Reports no additional musculoskeletal complaints Integumentary/Breasts: Skin/Breast: Reports system reviewed and no additional complaints, except as docu and Reports as per HPI Neurologic: Reports system reviewed and no additional complaints, except as documented, Reports as per HPI and Reports Normal hearing present Psychiatric: Psychiatric: Reports no additional psychiatric complaints and Reports as per HPI Endocrine: Endocrine: Reports no additional endocrine complaints Hematologic/Lymphatic: Hematologic/Lymphatic: Reports no additional hematologic/lymphatic complaints Allergic/Immunologic: Allergic/Immunologic: Reports no additional allergic/immunologic complaints PMFSH Past Medical History Medical History Chronic hyponatremia Colon cancer Status post colectomy and chemo radiotherapy. Congestive heart failure Coronary artery disease Dementia in Parkinson's disease Depression with anxiety Diverticulitis Gastroesophageal reflux disease Hyperlipidemia Hypothyroidism Kidney stones Osteoarthritis Osteoporosis Parkinson disease Surgical History Surgical History History of appendectomy (1985) History of arthroplasty of right knee History of bilateral cataract extraction History of cardiac catheterization History of cholecystectomy (02/2006) History of colectomy (03/28/17) History of colostomy History of coronary artery stent placement History of cystoscopy History of partial nephrectomy (1955) History of right breast biopsy Status post trigger finger release Family History Family History Mother Cerebrovascular accident Unknown No problems noted. Son Diabetes mellitus Sibling Family history of kidney disease Unknown Family history of kidney disease Other Family history of allergic disorder Family history of malignant neoplasm Hypertension Social History
[2021-11-18] VITALS (16 sets, daily range): BP systolic 145–169; BP diastolic 48–70; PULSE 64–86; RESP 14–22; TEMP 36–36.8; O2SAT 97–100
[2021-11-18 01:00] LABS: Hematocrit 21.6 % (37.0-47.0); Hemoglobin 7.2 g/dL (12.0-15.0); Immature Platelet Fraction Pct 18.3 % (0.9-11.2); Mean Corpuscular HGB Conc 33.3 g/dl (32-36); Mean Platelet Volume 12.7 fl (7.4-10.4); Platelet Count Result 89 k/mm3 (150-375); Red Blood Count 2.25 M/mm3 (4.2-5.4); Red Cell Distribution Width 19.9 % (11.5-14.5)
[2021-11-18 01:24] LABS: Anion Gap 6 mmol/L (8-16); Blood Urea Nitrogen 23 mg/dL (7-17); Calcium 7.9 mg/dL (8.4-10.2); Carbon Dioxide 24 mmol/L (22-30); Chloride 99 mmol/L (98-107); Estimated CRCL calculation 48 ml/min; Estimated Glomerular Filt Rate > 60; Glucose 93 mg/dL (65-110); Sodium 129 mmol/L (137-145)
--- NOTE | 2021-11-18 02:14 | PC.NURSE ---
patients caregiver/poa is in the room past visiting hours. she was told multiple times about the visiting hours and covid policies. patients poa was refusing to leave and stated that the patient has been admitted several times within the last few months (during covid), and that she has been allowed to stay with the patient 24 hours a day. spoke with ketty charge nurse and milk house worker about the situation.
[2021-11-18 03:34] LABS: Vitamin D 25 Hydroxy 39.2 ng/mL
[2021-11-18] MEDS: LEVOTHYROXINE SODIUM 50 MCG TABLET PO (05:34)
[2021-11-18] MEDS: CARBIDOPA/LEVODOPA 25/100 MG TABLET 1 TABLET PO ×3 (05:35→21:07)
[2021-11-18 06:22] LABS: Immature Platelet Fraction Pct 17.8 % (0.9-11.2); Mean Corpuscular HGB Conc 33.2 g/dl (32-36); Mean Corpuscular Hemoglobin 31.8 pg (26-34); Mean Corpuscular Volume 95.9 fl (80-100); Mean Platelet Volume 12.8 fl (7.4-10.4); Platelet Count Result 90 k/mm3 (150-375); Red Blood Count 2.17 M/mm3 (4.2-5.4); Red Cell Distribution Width 20.8 % (11.5-14.5); White Blood Count 3.1 K/mm3 (4.5-10.0)
[2021-11-18 06:42] LABS: Alanine Aminotransferase 86 U/L (6-35); Albumin Level 3.3 g/dL (3.5-5.1); Alkaline Phosphatase 112 U/L (38-126); Anion Gap 8 mmol/L (8-16); Aspartate Amino Transferase 52 U/L (14-36); Bilirubin,Total 1.8 mg/dL (0.2-1.3); Blood Urea Nitrogen 21 mg/dL (7-17); Calcium 8.3 mg/dL (8.4-10.2); Carbon Dioxide 23 mmol/L (22-30); Chloride 98 mmol/L (98-107); Estimated CRCL calculation 48 ml/min; Estimated Glomerular Filt Rate > 60; Glucose 93 mg/dL (65-110); Potassium 3.9 mmol/L (3.4-5.0); Sodium 129 mmol/L (137-145)
[2021-11-18 07:19] LABS: Hematocrit 20.8 % (37.0-47.0)
[2021-11-18 07:21] LABS: Hemoglobin 6.9 g/dL (12.0-15.0)
--- NOTE | 2021-11-18 07:57 | PM.IMPN ---
Progress Note: A&P Assessment and Plan (1) Anemia: Code(s): D64.9 - Anemia, unspecified Status: Acute (2) Chronic hyponatremia: Code(s): E87.1 - Hypo-osmolality and hyponatremia Status: Acute (3) Depression with anxiety: Code(s): F41.8 - Other specified anxiety disorders Status: Acute (4) Congestive heart failure: Code(s): I50.9 - Heart failure, unspecified Status: Acute (5) Dementia in Parkinson's disease: Code(s): G20 - Parkinson's disease; F02.80 - Dementia in other diseases classified elsewhere without behavioral disturbance Status: Acute (6) Hyperlipidemia: Code(s): E78.5 - Hyperlipidemia, unspecified Status: Acute (7) Hypothyroidism: Qualifiers: Hypothyroidism type: unspecified Qualified Code(s): E03.9 - Hypothyroidism, unspecified Code(s): E03.9 - Hypothyroidism, unspecified Status: Chronic (8) Parkinson disease: Code(s): G20 - Parkinson's disease Status: Chronic Plan 11/17/21 - Dr. Choi has been consulted - the patient is agreeable and her power claims attorney is agreeable to a bone marrow aspiration if needed. - Continue to monitor H&H. - Transfuse if less than 7 hemoglobin. - Stool for occult blood - macrocytic anemia continue with vitamin B12 - continue to monitor. - She is on any SSRI - may consider checking thyroid - may check vitamin D - gently hydrate - continue with Celexa she had an echo on 06/01/2021 - continue with carbidopa levodopa - continue with Zocor and monitor liver function test - check thyroid level - continue with levothyroxine 11/18/21 pending hematology consult 1U PRBC ordered for Hgb 6.9 pt w h/o colon ca w functioning colostomy (Dr Velasquez Surgeon) no signs of bleeding on PE or reported by caregiver cont current care hydralazine PRN x BP > 150 Subjective Date/time seen: 11/18/21 07:57 pt oriented to self, cooperative to interview states she had SOB but its gone now and she feels better, caregiver and surrogate decision maker bedside states that pt has transient levels of confusion at baseline. POC reviewed Review of Systems Review of Systems: All systems reviewed & are unremarkable except as noted in HPI and below Exam Const: General: cooperative, comfortable, no acute distress, awake and Physically active Nutritional Appearance: average body habitus and well nourished Orientation/consciousness: oriented to person Limitations: no limitations Other: very pale HENMT: Head: normal to inspection, normocephalic and atraumatic Ears: hearing grossly normal bilaterally General nose exam: Normal external nose present Eyes: General: appearance normal, both eyes and all related structures Alignment and Position: alignment normal Periorbital: periorbital findings normal Eyelids: eyelids normal Sclera: sclerae normal EOM: EOMs intact bilaterally Neck: Neck: normal visual inspection and full ROM Chest: Chest palpation & inspection: normal inspection of the chest Resp: Effort & Inspection: normal respiratory effort Auscultation: clear to auscultation bilaterally Cardio: Rate: regular rate Rhythm: regular rhythm Heart sounds: S1 normal heart sound present and S2 normal heart sound present GI: Inspection: normal to inspection Auscultation: normal bowel sounds Other: colostomy bag intact draining light brown stool Skin: General skin exam: normal color Lesions: no lesions Rashes: no rashes Trauma: no lacerations or abrasions Wounds: no wounds Neuro: General: oriented to person Cranial nerves: Yes Normal hearing present Cognition (Neuro): abnormal cognition Speech: normal speech Extrem: General: normal to inspection and no edema Psych: Appearance: grossly normal Mental Status: mental status grossly abnormal Affect: normal affect Attitude: cooperative Objective Data Vital Signs Vital Signs: Vital Signs - 24 hr 11/17/21 14:09 11/17/21 15:4
[2021-11-18 08:29] LABS: Total Cells Counted 50
[2021-11-18 08:30] LABS: Band Neutrophils Percent 28 % (0-6); Neutrophils Absolute Manual 1.79 K/mm3 (1.7-7.2); Neutrophils Percent Manual 30 % (46-73)
[2021-11-18 08:31] LABS: Lymphocytes Absolute Manual 1.11 K/mm3 (1.1-4.5); Lymphocytes Percent Manual 36 % (18-44); Monocytes Absolute Manual 0.18 K/mm3 (0.1-0.90); Monocytes Percent Manual 6 % (3-9); Platelet Estimate Decreased (Adequate)
[2021-11-18] MEDS: POTASSIUM CHLORIDE 20 MEQ TABLET.ER PO (09:06)
[2021-11-18] MEDS: CITALOPRAM HYDROBROMIDE 20 MG TABLET 40 MG PO (09:06)
[2021-11-18] MEDS: CYANOCOBALAMIN 1,000 MCG TABLET 1000 MCG PO (09:07)
[2021-11-18] MEDS: atenoloL 25 MG TABLET PO (09:07)
[2021-11-18] MEDS: SODIUM CHLORIDE 0.9% IV 250 ML 30 ML IV CONT (09:11)
[2021-11-18] MEDS: TUBING, BLOOD PLUM PUMP TUBING 1 EACH XX (09:15)
[2021-11-18 12:29] LABS: Hemoglobin 9.2 g/dL (12.0-15.0)
[2021-11-18 12:41] LABS: Folic Acid 10.8 ng/mL (2.76->20); Vitamin B12 > 1000.0 pg/mL (239-931)
--- NOTE | 2021-11-18 12:56 | PDONCCN ---
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 Patient was last seen in the hospital on October 07 when she came in to the hospital with anemia and pancytopenia. She she came back into the hospital with tiredness and fatigue. She denies any bleeding including melena hematochezia. Her colostomy site showed no evidence of bleeding. She has been eating poorly. Denies any recent weight loss. Labs showed hemoglobin of 4.2. She has received 3 units of packed red blood cell with improvement in hemoglobin now up to 9.2. She was supposed to follow-up in the office for bone marrow aspiration and biopsy. Review of Systems - Review of Systems All systems reviewed & are unremarkable except as noted in HPI and bel - Neurologic Reports system reviewed and no additional complaints, except as documented, Reports hearing normal [facility] Medical History: Medical History (Last Reviewed 11/17/21 @ 22:19 by Deepa Matos NP) Chronic hyponatremia Colon cancer Status post colectomy and chemo radiotherapy. Congestive heart failure Coronary artery disease Dementia in Parkinson's disease Depression with anxiety Diverticulitis Gastroesophageal reflux disease Hyperlipidemia Hypothyroidism Kidney stones Osteoarthritis Osteoporosis Parkinson disease Surgical History: Surgical History (Last Reviewed 11/17/21 @ 22:19 by Deepa Matos NP) History of appendectomy Onset Date: 1985 History of arthroplasty of right knee History of bilateral cataract extraction History of cardiac catheterization History of cholecystectomy Onset Date: 02/2006 History of colectomy Onset Date: 03/28/17 History of colostomy History of coronary artery stent placement History of cystoscopy History of partial nephrectomy Onset Date: 1955 History of right breast biopsy Status post trigger finger release Family History: Family History (Last Reviewed 11/17/21 @ 22:19 by Deepa Matos NP) Mother Cerebrovascular accident Unknown No problems noted. Son Diabetes mellitus Sibling Family history of kidney disease Unknown Family history of kidney disease Other Family history of allergic disorder Family history of malignant neoplasm Hypertension - Social History Social History: Social History (Last Updated 11/17/21 @ 22:21 by Deepa Matos NP) Alcohol Use: Alcohol intake: never Substance Use: Substance use: never Substance use type: does not use Others: Spiritual care concerns: No Smoking Status: Smoking status: Former smoker Smoking Pack-years: Smoking packs per day: 0.2 Smoking cigarettes per day: 4.0 Years smoked: 5 Smoking pack-years: 1.00 Meds Home Medications Medication Instructions Recorded Confirmed Type carbidopa 25 mg-levodopa 100 mg 1 tablet PO TID 02/04/21 11/17/21 History tablet citalopram 40 mg tablet 40 mg PO DAILY 02/04/21 11/17/21 History levothyroxine 50 mcg tablet 50 mcg PO DAILY 02/04/21 11/17/21 History (Synthroid) simvastatin 10 mg tablet 10 mg PO HS 02/04/21 11/17/21 History acetaminophen 325 mg tablet 650 mg PO Q4H PRN Pain 05/31/21 11/17/21 History artificial tears solution eye drops 1 drp ophthalmic (eye) PRN PRN Dry 05/31/21 11/17/21 History Eyes atenolol 25 mg tablet 25 mg PO DAILY 05/31/21 11/17/21 History potassium chloride 20 mEq 20 meq PO DAILY 05/31/21 11/17/21 History tablet,extended release(part/cryst) (Klor-Con M) cyanocobalamin (vitamin B-12) 2 tablet PO DAILY 11/17/21 11/17/21 History nitroglycerin 0.4 mg sublingual 0.4 mg DIRECTED 11/17/21 11/17/21 History t
--- NOTE | 2021-11-18 16:32 | PC.NURSE ---
I was called to the room to speak with patient's POASheryl. RODNEY Sheryl was upset that the patient was not in a private room where she could stay with the patient. I explained to Sheryl that we currently did not have any private rooms due to the increased census and the requirement of other patients to have private rooms for medical reasons. Sheryl stated that if she was very unhappy with this arrangement and that she was considering ripping up the consent for the bone marrow biopsy scheduled for tomorrow morning if she was not given a private room and allowed to stay. Sheryl stated that she would be leaving the hospital with the patient and that she had already discussed such with the patient's son. I again reiterated to Sheryl that we would not be able to accommodate a private room in our unit, but that it would not be in the patient's best interest to leave the hospital. I told Sheryl that I would reach out to the hospitalist in charge of the patient today to determine if she could be downgraded to a different status, telemetry or medical, in order to obtain a bed on another unit. Sheryl was agreeable to that plan. After leaving Sheryl, I called Dr. Roach and discussed the situation. Dr. Roach was agreeable to the patient being telemetry status as Dr. Choi had seen the patient and ordered the bone marrow biopsy to rule out source of blood loss. This plan has been communicated to the house calls nurse practitioner who has provided a private room for the patient on the 3rd floor.
[2021-11-18 17:11] LABS: Hematocrit 24.4 % (37.0-47.0); Hemoglobin 8.2 g/dL (12.0-15.0)
--- NOTE | 2021-11-18 17:29 | PC.NURSE ---
This patient, Bonnie Granados, was transferred to [[facility] ] on 11/18/21 at 1729. Personal belongings sent with patient. Report given to [ EMILIA Bradshaw @ [phone]]. Appropriate documentation sent with patient.
[2021-11-18] MEDS: SIMVASTATIN 10 MG TABLET PO (21:07)
[2021-11-19] VITALS (11 sets, daily range): BP systolic 134–158; BP diastolic 50–57; PULSE 61–73; RESP 18–20; TEMP 36.2–36.4; O2SAT 96–100
[2021-11-19 05:40] LABS: Hematocrit 27.3 % (37.0-47.0); Hemoglobin 9.1 g/dL (12.0-15.0); Immature Platelet Fraction Pct 15.5 % (0.9-11.2); Mean Corpuscular HGB Conc 33.3 g/dl (32-36); Mean Corpuscular Hemoglobin 31.5 pg (26-34); Mean Corpuscular Volume 94.5 fl (80-100); Mean Platelet Volume 11.9 fl (7.4-10.4); Platelet Count Result 84 k/mm3 (150-375); Red Blood Count 2.89 M/mm3 (4.2-5.4); Red Cell Distribution Width 18.8 % (11.5-14.5)
[2021-11-19 05:47] LABS: Anion Gap 5 mmol/L (8-16); Blood Urea Nitrogen 15 mg/dL (7-17); Calcium 7.9 mg/dL (8.4-10.2); Carbon Dioxide 23 mmol/L (22-30); Chloride 101 mmol/L (98-107); Estimated CRCL calculation 64 ml/min; Estimated Glomerular Filt Rate > 60; Glucose 88 mg/dL (65-110); Potassium 4.1 mmol/L (3.4-5.0); Sodium 129 mmol/L (137-145)
[2021-11-19] MEDS: CARBIDOPA/LEVODOPA 25/100 MG TABLET 1 TABLET PO ×3 (06:36→20:32)
[2021-11-19] MEDS: LEVOTHYROXINE SODIUM 50 MCG TABLET PO (06:37)
[2021-11-19 06:50] LABS: Anisocytosis 2+ (NORMAL); Atypical Lymphocytes Present; Band Neutrophils Percent 27 % (0-6); Eosinophils Absolute Manual 0.03 K/mm3 (0.02-0.5); Eosinophils Percent Manual 1 % (0-4); Lymphocytes Absolute Manual 0.93 K/mm3 (1.1-4.5); Metamyelocytes Percent 1 %; Monocytes Absolute Manual 0.12 K/mm3 (0.1-0.90); Monocytes Percent Manual 4 % (3-9); Neutrophils Absolute Manual 1.89 K/mm3 (1.7-7.2); Neutrophils Percent Manual 36 % (46-73); Platelet Estimate Decreased (Adequate); Poikilocytosis 2+ (NORMAL); Total Cells Counted 100
--- NOTE | 2021-11-19 07:46 | WPDMODSED ---
Moderate Sedation Note-Pt Data Patient Data Diagnosis: Anemia. Present Complaint: Anemia. Procedure to be performed/Plan: Fluoro-guided bone marrow biopsy of the ilium. Allergies Allergy/AdvReac Type Severity Reaction Status Date / Time lanolin Allergy Severe ITCHING Verified 11/17/21 14:16 morphine Allergy Mild Itching Verified 11/17/21 14:16 meperidine Allergy Unknown Itching Verified 11/17/21 14:16 sulfur dioxide Allergy Unknown Unknown Verified 11/17/21 14:16 tramadol Allergy Unknown Dizziness Verified 11/17/21 14:16 Sulfa (Sulfonamide AdvReac Mild Nausea and Verified 11/17/21 14:16 Antibiotics) Vomiting Home Medications Medication Instructions Recorded Confirmed Type carbidopa 25 mg-levodopa 100 mg 1 tablet PO TID 02/04/21 11/17/21 History tablet citalopram 40 mg tablet 40 mg PO DAILY 02/04/21 11/17/21 History levothyroxine 50 mcg tablet 50 mcg PO DAILY 02/04/21 11/17/21 History (Synthroid) simvastatin 10 mg tablet 10 mg PO HS 02/04/21 11/17/21 History acetaminophen 325 mg tablet 650 mg PO Q4H PRN Pain 05/31/21 11/17/21 History artificial tears solution eye drops 1 drp ophthalmic (eye) PRN PRN Dry 05/31/21 11/17/21 History Eyes atenolol 25 mg tablet 25 mg PO DAILY 05/31/21 11/17/21 History potassium chloride 20 mEq 20 meq PO DAILY 05/31/21 11/17/21 History tablet,extended release(part/cryst) (Klor-Con M) cyanocobalamin (vitamin B-12) 2 tablet PO DAILY 11/17/21 11/17/21 History nitroglycerin 0.4 mg sublingual 0.4 mg DIRECTED 11/17/21 11/17/21 History tablet Current Medications: Active Medications Acetaminophen (Acetaminophen 325 Mg Tablet) 650 mg PO Q4H PRN PRN Reason: Pain Artificial Tears (Artificial Tears Ophth Soln 15 Ml Bottle) 1 drop EACH EYE PRN PRN PRN Reason: Dry Eye(s) Atenolol (Atenolol 25 Mg Tablet) 25 mg PO DAILY MADELIN Last Admin: 11/18/21 09:07 Dose: 25 mg Carbidopa/Levodopa (Carbidopa/Levodopa 25/100 Mg Tablet) 1 tablet PO Q8HR [facility] Last Admin: 11/19/21 06:36 Dose: 1 tablet Citalopram Hydrobromide (Citalopram Hydrobromide 20 Mg Tablet) 40 mg PO DAILY [facility] Last Admin: 11/18/21 09:06 Dose: 40 mg Cyanocobalamin (Cyanocobalamin 1,000 Mcg Tablet) 1,000 mcg PO QAM [facility] Last Admin: 11/18/21 09:07 Dose: 1,000 mcg Hydralazine HCl (Hydralazine Hcl 20 Mg/Ml Vial) 5 mg IV PUSH Q8H PRN PRN Reason: Blood Pressure - High SBP >150 Levothyroxine Sodium (Levothyroxine Sodium 50 Mcg Tablet) 50 mcg PO DAILY@0630 [facility] Last Admin: 11/19/21 06:37 Dose: 50 mcg Neomycin/Polymyxin/Bacitracin (Neomycin/Polymyxin/Bacitracin Ointment 15 Gm Tube) 1 applic TOPICAL PRN PRN PRN Reason: with dressing changes Nitroglycerin (Nitroglycerin Sl 0.4 Mg Tablet) 0.4 mg SUBLINGUAL Q5MIN PRN PRN Reason: Chest Pain Potassium Chloride (Potassium Chloride 20 Meq Tablet.Er) 20 meq PO DAILY@0800 [facility] Last Admin: 11/18/21 09:06 Dose: 20 meq Simvastatin (Simvastatin 10 Mg Tablet) 10 mg PO HS [facility] Last Admin: 11/18/21 21:07 Dose: 10 mg Sedation/Anesthesia: No previous sedation/anesthesia problems (including family history). [facility] Past Medical History Medical History Chronic hyponatremia Colon cancer Status post colectomy and chemo radiotherapy. Congestive heart failure Coronary artery disease Dementia in Parkinson's disease Depression with anxiety Diverticulitis Gastroesophageal reflux disease Hyperlipidemia Hypothyroidism Kidney stones Osteoarthritis Osteoporosis Parkinson disease Surgical History Surgical History History of appendectomy (1985) History of arthroplasty of right knee History of bilateral cataract extraction History of cardiac catheterization History of cholecystectomy (02/2006) History of colectomy (03/28/17) History of colostomy History of coronary artery stent placement History of cystoscopy History of partial nephrectomy (1955) His
--- NOTE | 2021-11-19 08:02 | PM.IMPN ---
Progress Note: A&P Assessment and Plan (1) Anemia: Code(s): D64.9 - Anemia, unspecified Status: Acute (2) Chronic hyponatremia: Code(s): E87.1 - Hypo-osmolality and hyponatremia Status: Acute (3) Depression with anxiety: Code(s): F41.8 - Other specified anxiety disorders Status: Acute (4) Congestive heart failure: Code(s): I50.9 - Heart failure, unspecified Status: Acute (5) Dementia in Parkinson's disease: Code(s): G20 - Parkinson's disease; F02.80 - Dementia in other diseases classified elsewhere without behavioral disturbance Status: Acute (6) Hyperlipidemia: Code(s): E78.5 - Hyperlipidemia, unspecified Status: Acute (7) Hypothyroidism: Qualifiers: Hypothyroidism type: unspecified Qualified Code(s): E03.9 - Hypothyroidism, unspecified Code(s): E03.9 - Hypothyroidism, unspecified Status: Chronic (8) Parkinson disease: Code(s): G20 - Parkinson's disease Status: Chronic (9) Pancytopenia: Code(s): D61.818 - Other pancytopenia Status: Acute (10) Elevated blood pressure reading: Code(s): R03.0 - Elevated blood-pressure reading, without diagnosis of hypertension Status: Acute (11) HLD (hyperlipidemia): Qualifiers: Hyperlipidemia type: mixed hyperlipidemia Qualified Code(s): E78.2 - Mixed hyperlipidemia Code(s): E78.5 - Hyperlipidemia, unspecified Status: Chronic (12) Hypertension: Code(s): I10 - Essential (primary) hypertension Status: Acute Plan 11/17/21 - Dr. Choi has been consulted - the patient is agreeable and her power claim attorney is agreeable to a bone marrow aspiration if needed. - Continue to monitor H&H. - Transfuse if less than 7 hemoglobin. - Stool for occult blood - macrocytic anemia continue with vitamin B12 - continue to monitor. - She is on any SSRI - may consider checking thyroid - may check vitamin D - gently hydrate - continue with Celexa she had an echo on 06/01/2021 - continue with carbidopa levodopa - continue with Zocor and monitor liver function test - check thyroid level - continue with levothyroxine 8/11/22 pending hematology consult 1U PRBC ordered for Hgb 6.9 pt w h/o colon ca w functioning colostomy (Dr Velasquez Surgeon) no signs of bleeding on PE or reported by caregiver cont current care hydralazine PRN x BP > 150 11/19/21 ongoing hypertension likely associated w pain cont PRN BP coverage hgb stable 9.1 dc when cleared by Dr Choi Subjective Date/time seen: 11/19/21 08:02 seen after biopsy caregiver at bedside pt without complaints Review of Systems Review of Systems: All systems reviewed & are unremarkable except as noted in HPI and below Exam Const: General: cooperative, no acute distress, awake and Physically active; No comfortable Nutritional Appearance: average body habitus and well nourished Orientation/consciousness: oriented to person HENMT: Head: normal to inspection, normocephalic and atraumatic Ears: hearing grossly normal bilaterally Eyes: General: appearance normal, both eyes and all related structures Alignment and Position: alignment normal Periorbital: periorbital findings normal EOM: EOMs intact bilaterally Neck: Neck: normal visual inspection and full ROM Resp: Effort & Inspection: normal respiratory effort Auscultation: clear to auscultation bilaterally Cardio: Rate: regular rate Rhythm: regular rhythm Heart sounds: S1 normal heart sound present and S2 normal heart sound present Peripheral pulses: Peripheral pulses 2+ throughout GI: Inspection: normal to inspection and non-distended GI Palp: Yes Soft to palpation Auscultation: normal bowel sounds Other: colostomy bag intact draining light brown stool Skin: General skin exam: normal color Lesions: no lesions Rashes: no rashes Neuro: General: oriented to person Cranial nerves: Yes Normal hearin
[2021-11-19] MEDS: CITALOPRAM HYDROBROMIDE 20 MG TABLET 40 MG PO (09:44)
[2021-11-19] MEDS: atenoloL 25 MG TABLET PO (09:44)
[2021-11-19] MEDS: POTASSIUM CHLORIDE 20 MEQ TABLET.ER PO (09:44)
[2021-11-19] MEDS: CYANOCOBALAMIN 1,000 MCG TABLET 1000 MCG PO (09:45)
[2021-11-19] MEDS: ACETAMINOPHEN 325 MG TABLET 650 MG PO (13:46)
[2021-11-19] MEDS: SIMVASTATIN 10 MG TABLET PO (20:32)
[2021-11-20] VITALS: PULSE 71
[2021-11-20 04:00] VITALS: PULSE 76
[2021-11-20] MEDS: LEVOTHYROXINE SODIUM 50 MCG TABLET PO (05:47)
[2021-11-20] MEDS: CARBIDOPA/LEVODOPA 25/100 MG TABLET 1 TABLET PO ×2 (05:47→12:54)
[2021-11-20 06:37] VITALS: BP 153/66; PULSE 67; RESP 16; TEMP 36.4; O2SAT 97
[2021-11-20 08:00] VITALS: PULSE 74
[2021-11-20 08:14] VITALS: PULSE 78
[2021-11-20] MEDS: CITALOPRAM HYDROBROMIDE 20 MG TABLET 40 MG PO (08:14)
[2021-11-20] MEDS: CYANOCOBALAMIN 1,000 MCG TABLET 1000 MCG PO (08:14)
[2021-11-20] MEDS: POTASSIUM CHLORIDE 20 MEQ TABLET.ER PO (08:14)
[2021-11-20] MEDS: atenoloL 25 MG TABLET PO (08:14)
[2021-11-20 12:00] VITALS: PULSE 76
[2021-11-20] MEDS: lisinopriL 5 MG TABLET PO (12:54)
--- NOTE | 2021-11-20 14:03 | PM.DS ---
DS: Admitting Diagnosis Discharge Date 11/20/21 Admitting Diagnosis (1) Anemia: ? (2) Chronic hyponatremia: (3) Depression with anxiety: ? (4) Congestive heart failure: ? 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 (7) Hypothyroidism: ? DS: Discharge Diagnosis Discharge Diagnosis (1) Pancytopenia: Code(s): D61.818 - Other pancytopenia Status: Acute (2) Anemia: Code(s): D64.9 - Anemia, unspecified Status: Acute (3) Chronic hyponatremia: Code(s): E87.1 - Hypo-osmolality and hyponatremia Status: Acute (4) Depression with anxiety: Code(s): F41.8 - Other specified anxiety disorders Status: Acute (5) Congestive heart failure: Code(s): I50.9 - Heart failure, unspecified Status: Acute (6) Dementia in Parkinson's disease: Code(s): G20 - Parkinson's disease; F02.80 - Dementia in other diseases classified elsewhere without behavioral disturbance Status: Acute (7) Hyperlipidemia: Code(s): E78.5 - Hyperlipidemia, unspecified Status: Acute (8) Hypothyroidism: Qualifiers: Hypothyroidism type: unspecified Qualified Code(s): E03.9 - Hypothyroidism, unspecified Code(s): E03.9 - Hypothyroidism, unspecified Status: Chronic (9) Parkinson disease: Code(s): G20 - Parkinson's disease Status: Chronic (10) Elevated blood pressure reading: Code(s): R03.0 - Elevated blood-pressure reading, without diagnosis of hypertension Status: Acute (11) Hypertension: Code(s): I10 - Essential (primary) hypertension Status: Acute (12) Colostomy in place: Code(s): Z93.3 - Colostomy status Status: Acute DS: Summary Hospital Course Reason for hospitalization: SOB this is an 86-year-old female patient who came in with complaints of weakness and fatigue.? The patient was recently discharged from here on 10/09/2021 with a similar episode she was seen by Dr. Choi at the time? and there was some concern about some myelodysplastic anemia and there was a plan to do bone marrow aspiration and biopsy outpatient.? The patient did not follow up or get a bone marrow? biopsy but is willing to do so now.? Her friend is at the bedside answering questions for her and her friend is also the durable power director clinical information services for healthcare.? Today her H&H is 4.2 and 12.9.? Patient has gotten 2 units of packed red blood cells so far.? She also has a history of Parkinson's and was given her carbidopa levodopa in the emergency room.? The patient has become very weak.? She does have a history of macrocytic anemia with MCV of 104.? Troponin 0.123? she has a history of having elevated troponins in the past. Hospital Course: 11/17/21 - Dr. Choi has been consulted - the patient is agreeable and her power director clinical information services is agreeable to a bone marrow aspiration if needed. -? Continue to monitor H&H. -? Transfuse if less than 7 hemoglobin. -? Stool for occult blood - macrocytic anemia continue with vitamin B12 - continue to monitor. -? She is on any SSRI - may consider checking thyroid? - may check vitamin D - gently hydrate - continue with Celexa ?she had an echo on 06/01/2021 - continue with carbidopa levodopa - continue with Zocor and monitor liver function test - check thyroid level - continue with levothyroxine 11/18/21 pending hematology consult 1U PRBC ordered for Hgb 6.9 pt w h/o colon ca w functioning colostomy (Dr Velasquez Surgeon) no signs of bleeding on PE or reported by caregiver cont current care? hydralazine PRN x BP > 150 11/19/21 ongoing hypertension likely associated w pain? cont PRN BP coverage hgb stable 9.1 dc when cleared by Dr Choi? 11/20/21 spoke w son Carroll by phone to review POC. He has met Dr Choi before, reports he is a very nice man, and is agreeable to making sure his mother follows up w him for Bx results. discharge home in stable condition to care of multimedia instructional designer care
== END 2021-11-20 15:30 | disposition home or self-care (01) | DRG 809 ==
LOC: ANHED 16:28 → ANHIMU 18:01 → ANH3MED 11-19 06:32 → ANHIMU 11-22 16:24
PROVIDERS: Nurse Practitioner; Radiology Diagnostic Radiology; Admitting Provider Internal Medicine; Emergency Provider Emergency Medicine; PCP Nurse Practitioner Adult Health; Referring Provider Internal Medicine Hematology & Oncology; Visit Provider Hospitalist
PROC: 07DR3ZX Extraction of Iliac Bone Marrow, Percutaneous Approach, Diagnostic (ICD-10-PCS; principal; 2021-11-19 08:00)
DX: D61.818 Other pancytopenia (principal); E87.1 Hypo-osmolality and hyponatremia; I50.32 Chronic diastolic (congestive) heart failure; F41.8 Other specified anxiety disorders; G20 Parkinson's disease; F02.80 Dementia in other diseases classified elsewhere, unspecified severity, without behavioral disturbance, psychotic disturbance, mood disturbance, and anxiety; E78.5 Hyperlipidemia, unspecified; E03.9 Hypothyroidism, unspecified; Z20.822 Contact with and (suspected) exposure to COVID-19; R03.0 Elevated blood-pressure reading, without diagnosis of hypertension; K21.9 Gastro-esophageal reflux disease without esophagitis; M81.0 Age-related osteoporosis without current pathological fracture; M19.90 Unspecified osteoarthritis, unspecified site; I25.10 Atherosclerotic heart disease of native coronary artery without angina pectoris; Z66 Do not resuscitate; Z96.651 Presence of right artificial knee joint; Z93.3 Colostomy status; Z85.038 Personal history of other malignant neoplasm of large intestine; Z90.49 Acquired absence of other specified parts of digestive tract; Z98.42 Cataract extraction status, left eye; Z98.41 Cataract extraction status, right eye; Z95.5 Presence of coronary angioplasty implant and graft; Z87.442 Personal history of urinary calculi
CPT/HCPCS: 36415; 36430; 38222; 71045; 80048; 80053; 82150; 82306; 82607; 82746; 83880; 84443; 84484; 85014; 85018; 85025; 85027; 85055; 85610; 85730; 86850; 86900; 86901; 86920; 88184; 88185; 88305; 88311; 88313; 88341; 88342; 88360; 93005; 96361; 99212; 99285; A9270; C9803; G0378; G0463; J1642; J3010; J7040; J7050; P9016; U0003; U0005

== ENCOUNTER 2021-11-24 11:23 | Outpatient (CLI) | payer MEDICARE, SELFPAY ==
[2021-11-24 11:47] LABS: Basophils Percent Auto 0.4 % (0.2-1.2); Eosinophils Percent Auto 0.9 % (0-4.4); Hematocrit 29.5 % (37.0-47.0); Hemoglobin 9.7 g/dL (12.0-15.0); Immature Granulocyte Absolute 0.03 K/mm3 (0.00-0.031); Immature Granulocyte Percent A 1.3 % (0-0.5); Lymphocytes Absolute Auto 0.65 K/mm3 (0.9-3.2); Lymphocytes Percent Auto 28.9 % (18.3-44.2); Mean Corpuscular HGB Conc 32.9 g/dl (32-36); Mean Corpuscular Volume 94.2 fl (80-100); Mean Platelet Volume 11.8 fl (7.4-10.4); Monocytes Absolute Auto 0.6 K/mm3 (0.1-0.6); Monocytes Percent Auto 26.7 % (2.6-8.5); Neutrophils Absolute Auto 0.9 K/mm3 (1.3-6.7); Neutrophils Percent Auto 41.8 % (45.5-73.1); Platelet Count Result 125 k/mm3 (150-375); Red Blood Count 3.13 M/mm3 (4.2-5.4); Red Cell Distribution Width 17.2 % (11.5-14.5); White Blood Count 2.3 K/mm3 (4.5-10.0)
[2021-11-24 13:06] LABS: Iron 194 ug/dL (37-170)
[2021-11-24 13:08] LABS: Alanine Aminotransferase 29 U/L (6-35); Albumin Level 3.9 g/dL (3.5-5.1); Alkaline Phosphatase 89 U/L (38-126); Anion Gap 9 mmol/L (8-16); Aspartate Amino Transferase 28 U/L (14-36); Bilirubin,Total 0.7 mg/dL (0.2-1.3); Blood Urea Nitrogen 9 mg/dL (7-17); Calcium 9.4 mg/dL (8.4-10.2); Carbon Dioxide 24 mmol/L (22-30); Chloride 94 mmol/L (98-107); Estimated Glomerular Filt Rate > 60; Glucose 135 mg/dL (65-110); Sodium 127 mmol/L (137-145)
[2021-11-24 13:16] LABS: Percent Iron Saturation 70 % (20-50)
[2021-11-24 13:36] LABS: Carcinoembryonic Antigen 1.9 ng/mL (0.0-3.0)
[2021-11-24 14:14] LABS: Folic Acid 17.6 ng/mL (2.76->20); Vitamin B12 > 1000.0 pg/mL (239-931)
== END 2021-11-24 11:24 | disposition home or self-care (01) ==
PROVIDERS: PCP Nurse Practitioner Adult Health; Visit Provider Internal Medicine Hematology & Oncology
DX: C20 Malignant neoplasm of rectum (principal); D64.9 Anemia, unspecified
CPT/HCPCS: 36415; 80053; 82378; 82607; 82728; 82746; 83540; 83550; 85025